=== PATIENT | male | born 1960 | race Caucasian/White ===

== ENCOUNTER → 2024-09-02 | Outpatient (CLI) | payer MEDICARE, SELFPAY ==
[2024-09-02 16:22] LABS: Absolute Lymphocyte Count 1.73 X10^3/uL (0.83-4.51); Absolute Neutrophil Count 3.8 X10^3/uL (2.0-7.7); Basophil# 0.04 X10^3/uL; Basophil% 0.6 % (0-1); Eosinophil# 0.05 X10^3/uL; Eosinophils% 0.8 % (0-5); Hematocrit 42.8 % (40-54); Hemoglobin 14.6 g/dL (13.0-16.5); Lymphocyte # 1.73 X10^3/ul (0.83-4.51); Lymphocyte % 27.7 % (19-41); Mean Corp Hgb Conc 34.1 g/dL (32-36); Mean Corpuscular Hgb 30.6 pg (27.0-32.0); Mean Corpuscular Volume 89.7 fL (80-94); Mean Platelet Vol. 9.9 fl (6.2-12.0); Monocyte# 0.57 X10^3/uL; Monocyte% 9.1 % (0-10); NRBC Flagged by Analyzer 0 % (0-5); Neutrophil # 3.83 X10^3/uL (2.7-7.7); Neutrophil % 61.5 % (47-70); Platelet Count 180 K/mm3 (150-450); RBC Distribution Width CV 13.3 % (11.6-14.6); RBC Distribution Width SD 43.9 fl (35.1-43.9); Red Blood Count 4.77 M/mm3 (4.6-6.2); White Blood Count 6.2 K/mm3 (4.4-11.0)
[2024-09-02 16:56] LABS: Erythrocyte Sedimentation Rate 27 mm/hr (0-20)
== END | disposition home or self-care (01) ==
PROVIDERS: PCP Family Medicine; Referring Provider Ophthalmology; Visit Provider Ophthalmology
DX: G45.3 Amaurosis fugax (principal)
CPT/HCPCS: 36415; 85025; 85652; 86140

== ENCOUNTER → 2024-09-13 | Outpatient (CLI) | payer MEDICARE, SELFPAY ==
--- NOTE | 2024-09-13 11:17 | CT_ITS ---
PROCEDURE: CTA HEAD AND NECK W/ CONTRAST 09/13/2024 REASON FOR EXAM: CRITICAL R ICA STENOSIS TECHNIQUE: CTA HEAD AND NECK W/ CONTRAST Multiplanar Sagittal and Coronal images were obtained. CONTRAST: Isovue 370 VOLUME: 95 mL One or more dose reduction techniques were used (e.g., Automated exposure control, adjustment of the mA and/or kV according to patient size, use of iterative reconstruction technique). RADIATION DOSE SUMMARY: CTDlvol: 28 mGy DLP: 1575.73 mGycm COMPARISON: None FINDINGS: Aortic Arch: Normal size and branching pattern. Mild atherosclerotic plaque. Brachiocephalic and Subclavians: Mild atherosclerotic plaque without significant stenosis. RIGHT Carotid: Right CCA: Unremarkable. Right ICA: At the carotid bifurcation. Maximum stenosis (NASCET): Gradient 90 % Right ECA: Unremarkable. LEFT Carotid: Left CCA: Unremarkable. Left ICA: Unremarkable. Left ECA: Unremarkable. Vertebrals: Codominant. Arise from the subclavians. Both vertebrals form the basilar. RIGHT Vertebral: Unremarkable. LEFT Vertebral: Unremarkable. Anatomy: [place] anatomy is normal. Aneurysm or avm: No intracranial aneurysms or large vascular malformations are identified. Anterior cerebral arteries: Unremarkable: Middle cerebral arteries: Unremarkable. Basilar artery: Unremarkable. Posterior cerebral arteries: Unremarkable. Other major branches of the posterior circulation: Unremarkable. Major venous structures: Unremarkable. Other findings: Neck: Lungs: Bones: CT/CTA Head AND Neck W/ Contrast IMPRESSION: Subtotal occlusion at the origin of the right internal carotid artery. Reading Location: [facility]
== END | disposition home or self-care (01) ==
LOC: CT 11:15
PROVIDERS: PCP Family Medicine; Referring Provider Physician Assistant; Visit Provider Physician Assistant
DX: I65.21 Occlusion and stenosis of right carotid artery (principal)
CPT/HCPCS: 70496; 70498; Q9967

== ENCOUNTER 2024-09-25 09:35 | Inpatient (IN) | payer MEDICARE, SELFPAY ==
--- NOTE | 2024-09-24 10:54 | PAT.ANESEVAL ---
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 When Was Last Pacemaker Check QUESTION #4 FULL TEXT: You/Your Family Experience fever (hyperthermia) with Anesthesia Last Oral Intake Last Oral intake: Last Oral Intake NPO since Meds taken in AM with sips of water? 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 Female No 09/23/24 15:56 HX of Motion Sickness No 09/23/24 15:56 HX of N/V After Surgery No 09/23/24 15:56 Non-Smoker Yes 09/23/24 15:56 Duration of Surgery greater Yes 09/23/24 15:56 than 60 minutes Number of Risk Factors 2 09/23/24 15:56 PONV Score Moderate Risk 09/23/24 15:56 Respiratory Assessment Respiratory Assessment - seed cleaning machine operator: Respiratory Tract Infection Hx - seed cleaning machine operator Hx Respiratory Tract Infection No 09/23/24 15:56 STOP Sleep Apnea STOP Sleep Apnea - seed cleaning machine operator: STOP Sleep Apnea - seed cleaning machine operator Hx Hypertension No 09/23/24 15:56 Hx Sleep Apnea No 09/23/24 15:56 CPAP BIPAP Do you snore loudly (louder No 09/23/24 15:56 than talking or can be heard Do you often feel tired/ No 09/23/24 15:56 fatigued/ sleepy during daytime? Has anyone observed you stop No 09/23/24 15:56 breathing during sleep? STOP Results Negative 09/23/24 15:56 QUESTION #5 FULL TEXT : Do you snore loudly (louder than talking or can be heard through closed doors)? 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 Specify any problems Hx of Preganancy in last 3 N/A 09/23/24 15:56 Months Nurse Filling Out Transfusion JZOLLINGE 09/23/24 15:56 & Questions: Date: 09/23/24 09/23/24 15:56 Time: 16:00 09/23/24 15:56 Patient unable to answer at this time (ie. confused, unrespo /Reproduction History /Reproductive History - seed cleaning machine operator: /Reproductive Hx- seed cleaning machine operator Hx Now No 09/23/24 15:56 Gestational Age (in weeks): EDC: Hx Hx Para Hx Section SAB No 09/23/24 15:56 Active Medications Active Medications: Current Medications Generic Name Dose Route Start Last Admin Trade Name Freq PRN Reason Stop Dose Admin Clindamycin Phosphate 900 mg in 50 mls @ 75 mls/hr 09/25/24 07:00 Cleocin IV 09/25/24 07:39 INTRAOP ONE [facility] Medical History (Updated 09/23/24 @ 16:10 by Stacey Zaldivar) Hx of carotid artery stenosis Wears glasses Wears dentures Alcohol use Arthritis Smoker History of stress test Family history of heart disease Home Medications ?Medication ?Instructions ?Recorded ?Last Taken ?Type ascorbic acid (vitamin C) 500 mg 1,000 mg PO .QD SUPPLEMENET 09/10/24 Unknown History capsule vitamins A,C,E-btlb-gzkidp 4,296 1 cap PO BID EYES 09/10/24 Unknown History mcg-226 mg-90 mg capsule (PreserVision AREDS) aspirin 81 mg tablet,delayed 81 mg PO DAILY THINNER #360 tabs 09/12/24 Unknown Rx release (Adult Aspirin Regimen) rosuvastatin 40 mg tablet 40 mg PO QDAY CHOLESTEROL #30 tabs 09/12/24 Unknown Rx clopidogrel 75 mg tablet (Plavix) 75 mg PO DAILY BLOOD THINNER #30 09/13/24 Unknown Rx tabs Allergy/AdvReac Type Severity Reaction Status Date / Time Penicillins Allergy Severe Anaphylaxis Verified 09/23/24 15:46 Family History Other CVA (cerebral vascular accident) Cancer Heart disease Hypertension Surgical History (Updated 09/23/24 @ 15:56 by Stacey Zaldivar) Hx of colonoscopy History of surgery on lower extremity (~2017) Social History Smoking Status: Light Smoker (<10/day) Tobacco: How many years used: 49 Audit: Pertinent Findings Pertinent Findings EKG Perinent findings: April 26, 2023. Normal sinus rhythm. Stress test pertinent findings: September 23, 2024. EF of 65%. No ischemia. No infarction. Recommendation Anesthesia Recommendation Anesthesia recommendation: OPTIMIZED for anesthesia
[2024-09-25] VITALS (25 sets, daily range): BP systolic 103–159; BP diastolic 61–89; PULSE 49–68; RESP 14–22; TEMP 36.2–36.9; O2SAT 91–99; BMI 35.2
--- NOTE | 2024-09-25 05:36 | EKG12_ITS ---
Test Reason : PRE-OP Blood Pressure : */* mmHG Vent. Rate : 50 BPM Atrial Rate : 50 BPM P-R Int : 176 ms QRS Dur : 84 ms QT Int : 454 ms P-R-T Axes : 1 33 12 degrees QTcB Int : 413 ms Sinus bradycardia Otherwise normal ECG No previous ECGs available Confirmed by LASHELL MCGINNIS, HERVE ([id number]), school photograph editor EDUARDO HARDING ([id number]) on 09/26/2024 6:41:47 AM Referred By: Marcial Srinivasan Confirmed By: HERVE LOBO MD
[2024-09-25] MEDS: Lactated Ringers 1,000 ML 15 ML IV (06:00)
[2024-09-25 06:23] LABS: Anion Gap 11 (5-15); BUN 13 mg/dL (4-19); BUN/Creat Ratio 16.4 RATIO (10-20); Calcium,Total 8.8 mg/dL (7.6-11.0); Carbon Dioxide 21.0 mmol/L (21.0-32.0); Chloride 107 mmol/L (98-108); Glucose 110 mg/dL (70-99); Potassium 4.0 mmol/L (3.3-5.1)
--- NOTE | 2024-09-25 06:30 | PRE.ANES_ITS ---
ASA Classification* ASA Classification ASA Classification: 2 Assessment & Plan Anesthesia* Anesthesia Assessment Anesthesia Assessment: Discussed sedation and/or anesthesia options, risks, benefits, and alternatives with patient/parents/legal guardian/POA. Questions invited. The patient/parents/legal guardian/POA seems to understand and agrees to proceed with anesthesia plan. Reviewed the physical assessment, medical history, allergy history and patient home medications list prior to surgery/procedure/anesthetic and documented any changes. Performed airway and anesthesia risk assessments. Anesthesia Type Anesthesia Type: General History Source History Obtained from:: Patient and Chart Anesthesia Focused Assessment* Temperature: 97.6 F Pulse Rate: 50 Blood Pressure: 159/89 Respiratory Rate: 16 Pulse Ox: 98 Oxygen Delivery Method: Room Air Airway Assessment Mouth opens: >3 cm Mallampati Score: I Teeth Condition: Dentures Neck Range of motion (ROM): Full ROM Labs Anesthesia Preop lab: CBC WBC 7.8 K/mm3 (4.4-11.0) 09/26/24 03:30 09/26/24 RBC 4.26 M/mm3 (4.6-6.2) L 09/26/24 03:30 09/26/24 Hgb 13.3 g/dL (13.0-16.5) 09/26/24 03:30 09/26/24 Hct 37.7 % (40-54) L 09/26/24 03:30 09/26/24 Plt Count 141 K/mm3 (150-450) L 09/26/24 03:30 09/26/24 CHEMISTRY Potassium 4.0 mmol/L (3.3-5.1) 09/25/24 06:00 09/25/24 Sodium 139 mmol/L (133-145) 09/25/24 06:00 09/25/24 BUN 13 mg/dL (4-19) 09/25/24 06:00 09/25/24 Creatinine 0.77 mg/dL (0.70-1.20) 09/25/24 06:00 09/25/24 Glucose 110 mg/dL (70-99) H 09/25/24 06:00 09/25/24 COAG Pre-Assessment Diagnosis/Proposed Procedure Planned Operative Procedure(s): RIGHT CAROTID STENT Anesthesia History 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 When Was Last Pacemaker Check QUESTION #4 FULL TEXT: You/Your Family Experience fever (hyperthermia) with Anesthesia Last Oral Intake Last Oral intake: Last Oral Intake NPO since 03:30 09/25/24 06:19 Meds taken in AM with sips of Yes 09/25/24 06:19 water? 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 Female No 09/23/24 15:56 HX of Motion Sickness No 09/23/24 15:56 HX of N/V After Surgery No 09/23/24 15:56 Non-Smoker Yes 09/23/24 15:56 Duration of Surgery greater Yes 09/23/24 15:56 than 60 minutes Number of Risk Factors 2 09/23/24 15:56 PONV Score Moderate Risk 09/23/24 15:56 Height & Weight Height & Weight: Anesthesia: Height & Weight Height 5 ft 9 in 09/25/24 06:19 Weight: 108 kg 09/25/24 06:19 Body Mass Index (BMI) 35.2 09/25/24 06:19 Respiratory Assessment Respiratory Assessment - communications systems engineer: Respiratory Tract Infection Hx - communications systems engineer Hx Respiratory Tract Infection No 09/23/24 15:56 Any additional information?: Yes Hx Respiratory Tract Infection: No History of Anesthesia Respiratory Infection details: Current smoker. In preop show slight wheezing. Breathing treatment with DuoNeb given in preop. STOP Sleep Apnea STOP Sleep Apnea - communications systems engineer: STOP Sleep Apnea - communications systems engineer Hx Hypertension No 09/23/24 15:56 Hx Sleep Apnea No 09/23/24 15:56 CPAP BIPAP Do you snore loudly (louder No 09/23/24 15:56 than talking or can be heard Do you often feel tired/ No 09/23/24 15:56 fatigued/ sleepy during daytime? Has anyone observed you stop No 09/23/24 15:56 breathing during sleep? STOP Results Negative 09/23/24 15:56 QUESTION #5 FULL TEXT : Do you snore loudly (louder than talking or can be heard through closed doors)? 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 Specify any problems Hx of Preganancy in last 3 N/A 09/23/24 15:56 Months Nurse Filling Out Transfusion JCOURT 09/23/24 15:56 & Questions: Date: 09/23/24 09/23/24 15:56 Time: 16:00 09/23/24 15:56 Patient unable to answer at this time (ie. confused, unrespo /Reproduction History /Reproductive History - communications systems engineer: /Reproductive Hx- communications systems engineer Hx Now No 09/23/24 15:56 Gestational Age (in weeks): EDC: Hx Hx Para Hx Section SAB No 09/23/24 15:56 Active Medications Active Medications: Current Medications Generic Name Dose Route Start Last Admin Trade Name Freq PRN Reason Stop Dose Admin Clindamycin Phosphate 900 mg in 50 mls @ 75 mls/hr 09/25/24 07:00 Cleocin IV 09/25/24 07:39 INTRAOP ONE Lactated Ringer's 1,000 mls @ 15 mls/hr 09/25/24 05:45 09/25/24 06:00 IV 15 mls/hr .Q48H FILIPE Administration PFSH Medical History Hx of carotid artery stenosis Wears glasses Wears dentures Alcohol use Arthritis Smoker History of stress test Family history of heart disease Home Medications ?Medication ?Instructions ?Recorded ?Last Taken ?Type ascorbic acid (vitamin C) 500 mg 1,000 mg PO .QD SUPPL EMENET 09/10/24 09/24/24 History capsule vitamins A,C,B-zymk-bljuvr 4,296 1 cap PO BID EYES 09/24/24 History mcg-226 mg-90 mg capsule (PreserVision AREDS) aspirin 81 mg tablet,delayed 81 mg PO DAILY THINNER #3 60 tabs 09/12/24 09/25/24 03:30 Rx release (Adult Aspirin Regimen) rosuvastatin 40 mg tablet 40 mg PO QDAY CHOLESTEROL #3 0 tabs 09/12/24 09/24/24 Rx acetaminophen 500 mg tablet 1,000 mg (2 x 500 mg) PO Q 8 7 days 09/26/24 Unknown Rx #42 tabs clopidogrel 75 mg tablet (Plavix) 75 mg PO DAILY BLOOD THINNER #30 09/26/24 Unknown Rx tabs oxycodone 5 mg tablet 5 mg PO Q8H PRN PRN Pain Sco re 09/26/24 Unknown Rx 4-10 3 days #9 tabs tamsulosin 0.4 mg capsule 0.4 mg PO DAILY 14 days #14 caps 09/26/24 Unknown Rx Allergy/AdvReac Type Severity Reaction Status Date / Time Penicillins Allergy Severe Anaphylaxis Verified 09/25/24 06:16 Family History Other CVA (cerebral vascular accident) Cancer Heart disease Hypertension Surgical History Hx of colonoscopy History of surgery on lower extremity (~2018) Social History Smoking Status: Light Smoker (<10/day) Tobacco: How many years used: 49 Review of Systems (Anesthesia) ROS Narrative System reviewed and no additional complaints, except as documented. Physical Exam Const alert and oriented x3 Orientation / Consciousness: awake Nutritional Appearance: obese
--- NOTE | 2024-09-25 06:53 | PCM.HP.BLA ---
History and Physical Intake Visit Reasons: critical R ICA stenosis Is patient in pain?: No Allergies Penicillins Allergy (Severe, Verified 09/18/24 12:35) Anaphylaxis Medications ?Medication ?Instructions ?Recorded ?Confirmed ?Type ascorbic acid (vitamin C) 500 mg mg PO 09/10/24 09/18/24 History capsule multivitamin 1 tab PO QDAY 09/10/24 09/18/24 History vitamins A,C,G-jqei-suqvpw 4,296 1 cap PO BID 09/10/24 09/18/24 History mcg-226 mg-90 mg capsule (PreserVision AREDS) aspirin 81 mg tablet,delayed 81 mg PO DAILY #360 tabs 09/12/24 09/18/24 Rx release (Adult Aspirin Regimen) rosuvastatin 40 mg tablet 40 mg PO QDAY #30 tabs 09/12/24 09/18/24 Rx clopidogrel 75 mg tablet (Plavix) 75 mg PO DAILY #30 tabs 09/13/24 09/13/24 Rx Have you fallen in the past year?: Yes PFSH Surgical History History of surgery on lower extremity (~2017) Family History Other CVA (cerebral vascular accident) Cancer Heart disease Hypertension Social History Smoking Status: Light Smoker (<10/day) Tobacco: How many years used: 49 HPI HPI HPI: ROMA ELKINS, is a 63 M who presents to the office today for follow up of right carotid stenosis with two episodes of right eye amarosis in July. At the time he was not on antiplatelet medications. Since that time no further evetns, has been on ASA and recently added plavix. Duplex revealed severe right ICA stenosis and CTA confirmed this. Denies CP/SOB with exertion or prior CAD. He has a stress test next Monday. ROS General General: No weight change, appetite, fatigue, colon cancer, breast cancer or weakness HEENT HEENT: No difficulty swallowing, eye injury, eye surgery, swollen glands or hoarseness Endo Endocrine: No thyroid disease, diabetes mellitus, thyroid cancer, Hair loss, heat intolerance or cold intolerance Skin Skin: No rash or changing moles Musc Musculoskeletal: No back problems, arthritis, rheumatoid arthritis, gout or joint pain Cardio Cardiovascular: No murmur, pacemaker, heart disease, atrial fibrillation, high blood pressure, heart attack, heart stent, palpitations, shortness of breath with exertion or chest pain Psych Psychiatric: No depression, anxiety or hearing voices Resp Respiratory: No shortness of breath, No sleep apnea, No cough, No COPD, No asthma, No emphysema and No wheezing Gastro Gastrointestinal: No abdominal pain, No nausea or vomiting, No diarrhea, No constipation, No blood in stool, No acid reflux, No hemorrhoids, No ulcers, No gallbladder problem and No black,tarry stools Yuri Hematologic: No blood thinners, No blood disorders, No bleeding, No anemia and No blood clots Neuro Neurologic: No system reviewed and no additional complaints, except as documented, No as per HPI, No abnormal gait, No abnormal hearing, No abnormal movements, No abnormal speech, No behavioral changes, No burning sensations, No confusion, No convulsions, No disequilibrium, No dizziness, No localized weakness, No frequent falls, No headache(s), No lack of coordination, No loss of vision, No memory loss, Yes numbness, Yes other visual disturbances, No radicular pain, No restless legs, No sensory deficit, No syncope, Yes tingling, No tremor(s), No weakness and No other ROS Narrative blind rt eye May for one to two mins, visual is good now Exam Const General: cooperative, healthy appearing, comfortable, no acute distress and well developed Nutritional Appearance: well nourished Orientation: alert, awake and oriented x3 [facility] Head: normocephalic and atraumatic Ears: hearing grossly normal bilaterally Nose: external nose normal Eyes General: appearance normal, both eyes and all related structures EOM: EOM intact bilaterally Neck Neck: normal visual inspection, full ROM and trachea midline Resp Effort & Inspection: normal respiratory effort, able to speak in complete sentences, symmetric chest movement, no audible wheezes, not labored, no stridor and no use of accessory muscles Cardio Rate: regular rate Rhythm: regular rhythm Pulses: brachial pulses present Skin General: no rashes or lesions noted and no erythema Wounds: no wounds Neuro Cranial Nerves: CN's II-XI intact bilaterally and EOM intact bilaterally Speech: speech normal Gait: normal gait Motor: strength 5/5 throughout Sensory Exam: no sensory deficits noted Psych Appearance: grossly normal and well kempt Mental Status: mental status grossly normal Mood: congruent mood Speech and Movement: speech and movement normal Thought Content: normal Judgment: judgment good Coding Level of Care Code Off vis,est,level 4 Diagnoses Carotid stenosis, right I65.21 Assessment and Plan Assessment and Plan (1) Carotid stenosis, right: Status: Chronic Plan: -TCAR
[2024-09-25] MEDS: Midazolam 2 MG/2 ML Syringe IV (07:16)
[2024-09-25] MEDS: Glycopyrrolate (Cantrell) 0.2 MG/ML SYRINGE 0.6 MG IV (08:12)
[2024-09-25] MEDS: Heparin Injection 5,000 UNITS/ML Syringe 11000 UNITS IV (08:23)
[2024-09-25] MEDS: FENTANYL 200 MCG IV (09:25)
--- NOTE | 2024-09-25 11:00 | PCM.POST.ANE ---
Anesthesia: Postop Eval I Current Vital Signs Temperature: 97.5 F Pulse Rate: 52 Blood Pressure: 125/76 Respiratory Rate: 16 Pulse Ox: 97 Oxygen Delivery Method: Room Air Assessment Airway patent: Yes Spontaneous unlabored respirations: Yes Mental status: Awake and Calm nausea: No Vomiting: No Anesthesia Complication: No Fluid Hydration Crystalloid volume administer (ml): 1,500 Total IV fluid infused: 1,500 Progress Note Anesthesia document: Postop Eval 1 completed: Yes
--- NOTE | 2024-09-25 11:34 | PCM.POSTANE2 ---
Anesthesia Postop Eval I Sum Anesthesia Postop Eval I Summary Anesthesia Postop Eval I Summary: Anesthesia Postop Eval I: Assessment Summary Airway patent Spontaneous unlabored respirations Mental status nausea Vomiting Anesthesia Postop Eval I: Fluid Summary Crystalloid volume administer (ml) Colloids volume administered ( ml) Blood Product volume administered (ml) Total IV fluid infused Anesthesia Postop Eval I: Summary Notes Anesthesia Complication Anesthesia Complication Comment: Post-operative progress note Anesthesia: Postop Eval II Evaluation Mental status: Awake and Calm Pain Level: 2 nausea: No Vomiting: No Complications Anesthesia Complication: No
[2024-09-25] MEDS: Multivitamin (Healthy Eyes) Capsule 1 CAP PO ×2 (11:53→21:05)
[2024-09-25 13:05] LABS: ACT Activated Clotting Time 285 sec (74-137)
[2024-09-25 13:05] LABS: ACT Activated Clotting Time 331 sec (74-137)
[2024-09-25 13:05] LABS: ACT Activated Clotting Time 141 sec (74-137)
[2024-09-25] MEDS: Clindamycin 900 MG/50 ML BAG 75 MG IV ×2 (13:56→21:12)
--- NOTE | 2024-09-25 14:17 | PCM.OPRPT ---
Operative Report (Standard) Operative Information Date of Procedure: 09/25/24 Pre-Operative Diagnosis: Severe right carotid artery stenosis with episodes of amaurosis fugax Post-Operative Diagnosis: Same Surgery/Procedure Performed: Right carotid artery stent, transcarotid welding estimator: Yes Mill Turner: Blane Espinoza Tasks completed by assistant child care teacher: Opening, Closing, Opening & closing and Retracting Type of Anesthesia: General RN Documented Start/Stop Times: Operation Date: 09/25/24 07:15 Case Time Into Pre-Op 09/25/24 05:36 Out of Pre-Op 09/25/24 06:50 Into Recovery 09/25/24 10:16 Out of Recovery 09/25/24 11:27 Procedure Start Time: 08:15 Procedure Stop Time: 09:30 Select all DRAINS/GRAFTS/IMPLANTS that apply: Implanted device Implanted device details: [address] En route 9x40 Estimated Blood Loss: 7 Specimen collected: No Description of surgery: HPI: Patient is a 63-year-old male who suffered multiple episodes of right eye vision loss and was found to have severe right carotid artery stenosis. His anatomy and plaque morphology are most amenable to carotid artery stenting over endarterectomy. He is taken now for carotid artery stent via transcarotid approach. Description of procedure: Upon obtaining informed consent and verification correct patient procedure and site the patient was taken the Gyroscope Technician where he was placed under general anesthesia. He was then positioned prepped and draped in usual sterile fashion time was performed. Transverse incision was made 1 fingerbreadth superior to the clavicle and Bovie used to dissect down through subcutaneous tissue to the level of the platysma. The platysma was then divided and self-retaining retractors put in position with further dissection carried down to the sternocleidomastoid. The cleft between the sternal and clavicular heads was then dissected with Bovie exposing the carotid sheath. Self-retaining retractors removed deeper into the wound and further dissection carried down to the internal jugular vein which was then dissected free along its anterior border along with be retracted laterally exposing the common carotid artery. Sharp dissection then used to dissect free the common carotid artery with care taken to identify and protect the adjacent nerve and vein structures. A writing was used to place a vessel loop proximally and the patient was then heparinized and allowed to circulate for 3 minutes. Subsequent heparin dosing was then based performed on ACT results. A 5-0 Prolene pursestring suture was then placed at the intended access site. Next under ultrasound guidance the right common femoral vein was accessed with a micropuncture needle wire which was then exchanged for micropuncture sheath. Through the micropuncture sheath a J-wire was advanced and the micropuncture sheath exchanged for the flow reversal venous return sheath which was advanced without resistance. Once adequate ACT values were confirmed the common carotid artery was accessed with a micropuncture needle wire which was exchanged for a micropuncture sheath. Through the micropuncture sheath a hand-injection carotid angiogram was performed within satisfactory positioning no extravasation or dissection. Was also confirmed the position of the carotid bifurcation and the location of the plaque burden. Next the J-wire was advanced through the micropuncture sheath and stop short of the proximal edge of the plaque. The micropuncture sheath was exchanged for the [address] flow reversal sheath which again was advanced without resistance. The flow reversal tubing was then attached first to the carotid sheath and back flushed before establishing connection to the venous return sheath and confirming adequate flow reversal. Multiple oblique views were obtained to confirm satisfactory sheath tip positioning and to suzan the location of the carotid plaque and anatomic landmarks. Next the common carotid artery was occluded with a vessel loop proximally and flow reversal confirmed. Utilizing the [address] 014 wire was successfully navigated into the internal carotid artery traversing lesion advancing the wire into the distal internal carotid artery. A [address] angioplasty balloon 5 x 35 was then advanced centered on the lesion and inflated to nominal for 20 seconds then deflated and withdrawn. The en route stent 9 x 40 was then prepped for manufactures instructions advanced to position centered on the lesion and deployed. 3 minutes of flow reversal were then performed after which completion angiography was performed revealing satisfactory stent positioning with no extravasation or dissection and no plaque prolapse. The occlusive vessel loop was then released allowing additional time for flow reversal after which time the tubing was detached and blood flow returned via the femoral sheath. The femoral venous sheath was then withdrawn followed by manual pressure for 10 minutes until hemostasis was obtained. The carotid sheath was then withdrawn and the pursestring suture secured with satisfactory hemostasis observed. The wound was then inspected for hemostasis and Surgicel powder topical hemostatic applied followed by a [address] [place] [address] QUYEN via separate stab incision. Incision was then closed with 3-0 Vicryl followed by 4-0 Monocryl and Dermabond for the skin. At the conclusion of the case the patient was awake from anesthesia well extremities to command with cranial nerves intact. He was then taken to the recovery room with anticipated mission intensive intensive care unit for hemodynamic and neurologic monitoring. Surgical Findings: See above Complications Complications: No
[2024-09-26] VITALS (10 sets, daily range): BP systolic 123–142; BP diastolic 66–75; PULSE 52–72; RESP 15–20; TEMP 36.4–36.9; O2SAT 94–97; BMI 35.1
[2024-09-26 03:50] LABS: Hematocrit 37.7 % (40-54); Hemoglobin 13.3 g/dL (13.0-16.5); Immature Granulocytes Count 0.020 X10^3/uL (0.0-0.0); Mean Corp Hgb Conc 35.3 g/dL (32-36); Mean Corpuscular Volume 88.5 fL (80-94); Mean Platelet Vol. 9.5 fl (6.2-12.0); NRBC Flagged by Analyzer 0 % (0-5); Platelet Count 141 K/mm3 (150-450); RBC Distribution Width CV 13.2 % (11.6-14.6); RBC Distribution Width SD 43.2 fl (35.1-43.9); Red Blood Count 4.26 M/mm3 (4.6-6.2); White Blood Count 7.8 K/mm3 (4.4-11.0)
--- OUTSIDE RECORDS SUMMARY | 2024-09-26 08:00 | XMS RPT_ITS | CCD ---
Author Organization [facility] CliniSyme Care Team Providers Care School Commissioner Name Role Phone BLACK JIMENEZ Unavailable Jamil MCNEILL MD Unavailable NURSE, MADELINE Unavailable Unavailable Taty RN, Mckenzie Unavailable Unavailable Unavailable Unavailable Re MCGINNIS, Dr. Ordoñez Primary Care Provider Jhonatan MCGINNIS, Dr. Castañeda Attending Provider Dr. Sharee Price MD Referring Provider [phone] Matilde Rogers Attending Provider Matilde Rogers Referring Provider Dr. Smita Mcneill MD Referring Provider Zarina MCGINNIS, Dr. Ceja Attending Provider Hernandez, Matilde Attending Unavailable Hernandez, Matilde Referring Unavailable Kornhaus, Smita Primary Care Unavailable Kornhaus, Smita Primary Care Unavailable Sharee Price Attending Unavailable Sharee Price Referring Unavailable Zarina, Marcial Admitting Unavailable Marcial Srinivasan Attending Unavailable Zarina, Marcial Referring Unavailable Kornhaus, Smita Primary Care Unavailable Sharee Price Referring Unavailable Hernandez, Matilde Attending Unavailable Kornhaus, Smita Primary Care Unavailable Kornhaus, Smita Referring Unavailable [place], Marcial Attending Unavailable Kornhaus, Smita Primary Care Unavailable KORNHAUS, R SMTIA Consulting Unavailable HERNANDEZ, MATILDE Admitting Unavailable HERNANDEZ, MATILDE Primary Care Unavailable HERNANDEZ, MATILDE Attending Unavailable PROVIDER, UNKNOWN Consulting Unavailable PROVIDER, UNKNOWN Consulting Unavailable PROVIDER, UNKNOWN Consulting Unavailable KORNHAUS, R SMITA Consulting Unavailable KORNHAUS, R SMITA Attending Unavailable KORNHAUS, R SMITA Admitting Unavailable KORNHAUS, R SMITA Primary Care Unavailable PROVIDER, UNKNOWN Consulting Unavailable PROVIDER, UNKNOWN Consulting Unavailable PROVIDER, UNKNOWN Consulting Unavailable KORNHAUS, R SMITA Primary Care Unavailable KORNHAUS, R SMITA Attending Unavailable Jamil MCNEILL Admitting Unavailable JENY MOORE Admitting Unavailable JENY MOORE Primary Care Unavailable JENY MOORE Attending Unavailable Allergies Allergy Classification Reported Allergen(s) Allergy Type Date of Onset Reaction(s) Facility (13 sources) Penicillins (Antibiotic) Anaphylaxis [facility]; [place] [facility] (3 sources) Penicillins Allergy to substance 09-12-2024 Anaphylaxis [facility] (1 source) Penicillins Drug allergy (disorder) 09-18-2024 [facility] Repository (1 source) Penicillin Drug Allergy [facility] Repository (1 source) Penicillins Drug allergy (disorder) [facility] Repository Medications Current Medications Medication Drug Class(es) Dates Sig (Normalized) Sig (Original) ascorbic acid 500 mg oral capsule (3 sources) Vitamin C Start: 09-10-2024 Ascorbic Acid (Vitamin C) 500 mg capsule Active mg PO September 10, 2024 12:00am aspirin 81 mg delayed release oral tablet (3 sources) Platelet Aggregation Inhibitor, Nonsteroidal Anti-inflammatory Drug Start: 09-12-2024 take 1 tablet by mouth once daily Aspirin (Adult Aspirin Regimen) 81 mg tablet,delayed release (DR/EC) Active 81 mg PO DAILY 360 0 September 12, 2024 12:00am clopidogrel 75 mg oral tablet (2 sources) P2Y12 Platelet Inhibitor Start: 09-13-2024 take 1 tablet by mouth once daily Clopidogrel (Plavix) 75 mg tablet Active 75 mg PO DAILY 30 2 September 13, 2024 12:00am Multivitamin tablet (3 sources) Start: 09-10-2024 Multivitamin tablet Active 1 {tbl} PO daily September 10, 2024 12:00am Start: 09-10-2024 Multivitamin t ablet Discontinued 1 {tbl} PO daily September 10, 2024 12:00am rosuvastatin calcium 40 mg oral tablet (3 sources) HMG-CoA Reductase Inhibitor Start: 09-12-2024 take 1 tablet by mouth once daily Rosuvastatin 40 mg tablet Active 40 mg PO daily 30 2 September 12, 2024 12:00am Vitamins A,C,C-Xrxp-Iexuug (Preservision Areds) 4,296 mcg-226 mg-90 mg capsule (3 sources) Start: 09-10-2024 Vitamins A,C,X-Kkjb-Wrezpi (Preservision Areds) 4,296 mcg-226 mg-90 mg capsule Active 1 NMA PO TWICE A DAY September 10, 2024 12:00am Problems Active Problems Problem Classification Problem Date Documented Date Episodic/Chronic Disorders of lipid metabolism (16 sources) Hypertriglyceridemia ; Translations: [Pure hyperglyceridemia] 01-29-2024 Chronic Immunizations and screening for infectious disease (20 sources) Encounter for immunization; Translations: [Other specified vaccinations against streptococcus pneumoniae [pneumococcus]] 01-23-2024 Episodic Occlusion or stenosis of precerebral arteries (8 sources) Right carotid artery stenosis; Translations: [Occlusion and stenosis of right carotid artery] Onset: 09-18-2024 09-12-2024 Chronic Other circulatory disease (20 sources) Elevated blood pressure; Translations: [Elevated blood-pressure reading, without diagnosis of hypertension] 01-24-2024 Episodic Other hematologic conditions (20 sources) Increased globulin; Translations: [Abnormality of globulin] 01-29-2024 Episodic Other screening for suspected conditions (not mental disorders or infectious disease) (20 sources) Patient encounter status; Translations: [Encounter for screening for malignant neoplasm of colon] 01-23-2024 Episodic Transient cerebral ischemia (7 sources) Amaurosis fugax of right eye; Translations: [Amaurosis fugax] Onset: 09-05-2024 09-12-2024 Chronic Past or Other Problems Problem Classification Problem Date Documented Da te Episodic/Chronic Unclassified (12 sources) routine check up - Pt recently on [employer] and needs to establish with PCP. 01-23-2024 Unclassified (8 sources) !Patient notification of lab results - Dr. Mcneill. The test(s) that you had done were/was blood work (One of your liver function tests was slightly elevated. This can result from any number of causes such as fatty deposits in the liver or irritation due to a medication. I don't feel this test was elevated to the point of being a critical concern, but I would recommend that we repeat the test in 3 months to verify that it is stable.The protein level on your blood test was elevated. This is actually a test which combines the amount of a number of individual protein levels to give the total level which we tested. Sometimes the total is elevated because several individual proteins are in the high normal range. In other cases, it is because a single protein is elevated and thus driving up the total. There is an additional blood test called a serum protein electrophoresis that must be run at this time which helps identify these individual protein levels. Please call to schedule this in the next month.Your triglycerides were elevated at 205 (normal 150 or below). Avoiding fatty or sugary foods can help lower this.Your 3 month sugar (A1C) was 5.8 which is just inside the pre-diabetic range. Try to watch your sugar intake to keep this from rising.Your PSA test was normal.). You should call our office if you have any questions. 01-29-2024 Unclassified (3 sources) Blood pressure check - Note for Blood pressure check-up: Pt is feeling good. No chest pain or headaches. 07-23-2024 NEGATED: Highlighted row has been ruled out!Unclassified (1 source) No Problem Information Available Results Test Name Value Interpretation Reference Range Facility MR/BMSShani 09-18-2024 MR/BMS.MINOO [facility] Vascular Surgery [address] [place] [address] OFFICE VISIT Date of Service: 09/18/24 MR#: [id number] Acct: [id number] Name: ROMA MUNGUIA Rep #: [id number] : 1960 Provider: Dr. Marcial Srinivasan MD Age/Sex: 63/M Location: [facility] Status: Signed Intake Vital Signs 09/18/24 12:34 Weight: 238 lb BP 149/83 H Blood Pressure Location Lt brachial Position Sitting Respiration 16 Pulse 68 Pulse Source Monitor Temp 98.2 F Temp Source Temporal Pulse Oximetry (%) 96 Oxygen Delivery Method room air Intake Visit Reasons: critical R ICA stenosis Is patient in pain?: No Allergies Penicillins Allergy (Severe, Verified 09/18/24 12:35) Anaphylaxis Medications ???Medication ???Instructions ???Recorded ???Confirmed ???Type ascorbic acid (vitamin C) 500 mg mg PO 09/10/24 09/18/24 History capsule multivitamin 1 tab PO QDAY 09/10/24 09/18/24 Hi story vitamins A,C,P-flll-orderw 4,296 1 cap PO BID 09/10/24 09/18/24 His tory mcg-226 mg-90 mg capsule (PreserVision AREDS) aspirin 81 mg tablet,delayed 81 mg PO DAILY #360 tabs 09/12/24 09/18/24 Rx release (Adult Aspirin Regimen) rosuvastatin 40 mg tablet 40 mg PO QDAY #30 tabs 09/12/24 Rx clopidogrel 75 mg tablet (Plavix) 75 mg PO DAILY #30 tabs 09/13/24 09/13/24 Rx Have you fallen in the past year?: Yes PFSH Surgical History History of surgery on lower extremity ( 2018) Family History Other CVA (cerebral vascular accident) Cancer Heart disease Hypertension Social History Smoking Status: Light Smoker (<10/day) Tobacco: How many years used: 49 HPI HPI HPI: ROMA MUNGUIA, is a 63 M who presents to the office today for follow up of right carotid stenosis with two episodes of right eye amarosis in July. At the time he was not on antiplatelet medications. Since that time no further evetns, has been on ASA and recently added plavix. Duplex revealed severe right ICA stenosis and CTA confirmed this. Denies CP/SOB with exertion or prior CAD. He has a stress test next Monday. ROS General General: No weight change, appetite, fatigue, colon cancer, breast cancer or weakness HEENT HEENT: No difficulty swallowing, eye injury, eye surgery, swollen glands or hoarseness Endo Endocrine: No thyroid disease, diabetes mellitus, thyroid cancer, Hair loss, heat intolerance or cold intolerance Skin Skin: No rash or changing moles Musc Musculoskeletal: No back problems, arthritis, rheumatoid arthritis, gout or joint pain Cardio Cardiovascular: No murmur, pacemaker, heart disease, atrial fibrillation, high blood pressure, heart attack, heart stent, palpitations, shortness of breath with exertion or chest pain Psych Psychiatric: No depression, anxiety or hearing voices Resp Respiratory: No shortness of breath, No sleep apnea, No cough, No COPD, No asthma, No emphysema and No wheezing Gastro Gastrointestinal: No abdominal pain, No nausea or vomiting, No diarrhea, No constipation, No blood in stool, No acid reflux, No hemorrhoids, No ulcers, No gallbladder problem and No black,tarry stools Yuri Hematologic: No blood thinners, No blood disorders, No bleeding, No anemia and No blood clots Neuro Neurologic: No system reviewed and no additional complaints, except as documented, No as per HPI, No abnormal gait, No abnormal hearing, No abnormal movements, No abnormal speech, No behavioral changes, No burning sensations, No confusion, No convulsions, No disequilibrium, No dizziness, No localized weakness, No frequent falls, No headache(s), No lack of coordination, No loss of vision, No memory loss, Yes numbness, Yes other visual disturbances, No radicular pain, No restless legs, No sensory deficit, No syncope, Yes tingling, No tremor(s), No weakness and No other ROS Narrative blind rt eye May for one to two mins, visual is good now Exam Const General: cooperative, healthy appearing, comfortable, no acute distress and well developed Nutritional Appearance: well nourished Orientation: alert, awake and oriented x3 HENMT Head: normocephalic and atraumatic Ears: hearing grossly normal bilaterally Nose: external nose normal Eyes General: appearance normal, both eyes and all related structures EOM: EOM intact bilaterally Neck Neck: normal visual inspection, full ROM and trachea midline Resp Effort Inspection: normal respiratory effort, able to speak in complete sentences, symmetric chest movement, no audible wheezes, not labored, no stridor and no use of accessory muscles Cardio Rate: regular rate Rhythm: regular rhythm Pulses: brach (more content not included)... Normal [facility] CTA Head AND Neck W/ Contras ton 09-13-2024 CTA Head AND Neck W/ Contrast [facility] [address] [place] [address] CTA Head AND Neck W/ Contrast MR#: [id number] Acct: [id number] Name: ROMA MUNGUIA Rep #: [id number] : 1960 M 63 From: Cesar farr MD PCP: Dr. Smita Mcneill MD Status: REG CLI Study: CTA Head AND Neck W/ Contrast Date of Exam: Exam# [id number] Ordering Dr: Matilde Hernandez PROCEDURE: CTA HEAD AND NECK W/ CONTRAST 09/13/2024 REASON FOR EXAM: CRITICAL R ICA STENOSIS TECHNIQUE: CTA HEAD AND NECK W/ CONTRAST Multiplanar Sagittal and Coronal images were obtained. CONTRAST: Isovue 370 VOLUME: 95 mL One or more dose reduction techniques were used (e.g., Automated exposure control, adjustment of the mA and/or kV according to patient size, use of iterative reconstruction technique). RADIATION DOSE SUMMARY: CTDlvol: 28 mGy DLP: 1575.73 mGycm COMPARISON: None FINDINGS: Aortic Arch: Normal size and branching pattern. Mild atherosclerotic plaque. Brachiocephalic and Subclavians: Mild atherosclerotic plaque without significant stenosis. RIGHT Carotid: Right CCA: Unremarkable. Right ICA: At the carotid bifurcation. Maximum stenosis (NASCET): Gradient 90 % Right ECA: Unremarkable. LEFT Carotid: Left CCA: Unremarkable. Left ICA: Unremarkable. Left ECA: Unremarkable. Vertebrals: Codominant. Arise from the subclavians. Both vertebrals form the basilar. RIGHT Vertebral: Unremarkable. LEFT Vertebral: Unremarkable. Anatomy: [place] anatomy is normal. Aneurysm or avm: No intracranial aneurysms or large vascular malformations are identified. Anterior cerebral arteries: Unremarkable: Middle cerebral arteries: Unremarkable. Basilar artery: Unremarkable. Posterior cerebral arteries: Unremarkable. Other major branches of the posterior circulation: Unremarkable. Major venous structures: Unremarkable. Other findings: Neck: Lungs: Bones: CT/CTA Head AND Neck W/ Contrast IMPRESSION: Subtotal occlusion at the origin of the right internal carotid artery. Reading Location: [id number] CC: FRANKIE Mchugh; Dr. Smita Mcneill MD Swatch Clerk: Signed Normal [facility] MR/BMS.Sulema 09-12-2024 MR/BMS.[facility] Vascular Surgery [address] [place] [address]. [address] [place] [address] OFFICE VISIT Date of Service: 09/12/24 MR#: [id number] Acct: [id number] Name: ROMA MUNGUIA Rep #: [id number] : 1960 Provider: FRANKIE Mchugh Age/Sex: 63/M Location: [facility] Status: Signed Intake Vital Signs 09/12/24 08:39 Weight: 238 lb BP 132/79 H Blood Pressure Location Rt brachial Position Sitting Respiration 16 Pulse 63 Pulse Source Monitor Temp 97.7 F L Temp Source Temporal Pulse Oximetry (%) 96 Oxygen Delivery Method room air Intake Visit Reasons: R Carotid Occlusion copay $35 Is patient in pain?: No Allergies Penicillins Allergy (Severe, Verified 09/12/24 08:44) Anaphylaxis Medications ???Medication ???Instructions ???Recorded ???Confirmed ???Type ascorbic acid (vitamin C) 500 mg mg PO 09/10/24 09/10/24 History capsule multivitamin 1 tab PO QDAY 09/10/24 09/10/24 Hi story vitamins A,C,F-kzyz-sdytgg 4,296 1 cap PO BID 09/10/24 09/10/24 His tory mcg-226 mg-90 mg capsule (PreserVision AREDS) aspirin 81 mg tablet,delayed 81 mg PO DAILY #360 tabs 09/12/24 09/12/24 Rx release (Adult Aspirin Regimen) rosuvastatin 40 mg tablet 40 mg PO QDAY #30 tabs 09/12/24 Rx Have you fallen in the past year?: Yes PFSH Surgical History (Updated 09/12/24 @ 08:34 by Christa Mcelroy) History of surgery on lower extremity ( 2018) Family History (Updated 09/12/24 @ 08:37 by Christa Mcelroy) Other CVA (cerebral vascular accident) Cancer Heart disease Hypertension Social History (Updated 09/12/24 @ 08:39 by Christa Mcelroy) Smoking Status: Light Smoker (<10/day) Tobacco: How many years used: 49 HPI HPI HPI: ROMA MUNGUIA, is a 63 M who presents to the office today for evaluation of carotid artery stenosis as referred from [facility]. He had recent carotid duplex 09/09/24 at [facility] performed secondary to R eye vision changes which demonstrated critical R ICA stenosis with max PSV 543.76/269.53. Patient had a brief episode 3 weeks ago where vision in his R eye went completely black; this resolved completely within a few seconds. He report then a few days ago he had another episode but this time only the top half of his vision went black, again resolved within a few seconds. He denies any other associated neurological symptoms such as weakness/numbness/p aresthesias/facial droop/dysarthria. He denies any prior history of CVA or TIA, VTE, PAD, coronary artery disease. He is not on any prescription medications at home, does not take aspirin. He notes he has an upcoming 4 week trip to [place], planned to leave on 09/28. He would really still like to attend this if possible. ROS General General: No weight change, appetite, fatigue, colon cancer, breast cancer or weakness HEENT HEENT: No difficulty swallowing, eye injury, eye surgery, swollen glands or hoarseness Endo Endocrine: No thyroid disease, diabetes mellitus, thyroid cancer, Hair loss, heat intolerance or cold intolerance Skin Skin: No rash or changing moles Musc Musculoskeletal: No back problems, arthritis, rheumatoid arthritis, gout or joint pain Cardio Cardiovascular: No murmur, pacemaker, heart disease, atrial fibrillation, high blood pressure, heart attack, heart stent, palpitations, shortness of breath with exertion or chest pain Psych Psychiatric: No depression, anxiety or hearing voices Resp Respiratory: No shortness of breath, No sleep apnea, No cough, No COPD, No asthma, No emphysema and No wheezing Gastro Gastrointestinal: No abdominal pain, No nausea or vomiting, No diarrhea, No constipation, No blood in stool, No acid reflux, No hemorrhoids, No ulcers, No gallbladder problem and No black,tarry stools Yuri Hematologic: No blood thinners, No blood disorders, No bleeding, No anemia and No blood clots Neuro Neurologic: No system reviewed and no additional complaints, except as documented, No as per HPI, No abnormal gait, No abnormal hearing, No abnormal movements, No abnormal speech, No behavioral changes, No burning sensations, No confusion, No convulsions, No disequilibrium, No dizziness, No localized weakness, No frequent falls, No headache(s), No lack of coordination, No loss of vision, No memory loss, Yes numbness, Yes other visual disturbances, No radicular pain, No restless legs, No sensory deficit, No syncope, Yes tingling, No tremor(s), No weakness and No other Exam Const General: cooperative, comfortable and no acute distress Orientation: alert, awake and oriented x3 HENMT Head: normal to inspection, normocephalic and atraumatic Ears: hearing grossly normal bilaterally and external ears normal Nose: external nose normal Eyes General: appearance normal, both eyes and all rela (more content not included)... Normal [facility] CV CAROTID STUDY CV CAROTID STUDY [place] [address] Patient: ROMA MUNGUIA Phone#: : 1960 Age: 63 Gender: M Pt. Type: Out Account: [id number] Location: 052 Ordering: SHAREE PRICE Exam Date: 09/09/2024/10:38 Family Phys: Charge Code: [id number] Physician: [place] Order #: [id number] Dose#: PROCEDURE: CAROTID FLOW STUDY COMPARISON: None. INDICATIONS: Amaurosis fugax TECHNIQUE: Color duplex Doppler ultrasound and pulsed Doppler analysis were performed to evaluate the cervical carotid arteries and vertebral flow. All measurements for carotid artery narrowing or stenosis were obtained using the ipsilateral distal internal carotid artery as the reference value. SHOE FITTER: RODRIGUEZ BAIG RVMar RDCS PT HISTORY: Amaurosis Fugax RIGHT IMAGING FINDINGS: CCA: Mild heterogenous plaque is present. ICA: A hemodynamically significant stenosis is present. ECA: Mild heterogenous plaque is present. Vertebral A: Antegrade flow Comments: Category: V. Near occlusion. There is markedly narrow lumen demonstrated with color and/or power Doppler ultrasound. LEFT IMAGING FINDINGS: CCA: Mild heterogenous plaque is present. ICA: Mild heterogenous plaque without hemodynamically significant stenosis. ECA: Mild heterogenous plaque is present. Vertebral A: Antegrade flow. Comments: Category: II Less than 50% stenosis. ICA PSV less than 180cm/s. Plaque and/or intimal thickening present. RIGHT VELOCITY RECORDINGS Continued Report - Page 2 of 2 Patient: ROMA MUNGUIA Phone#: : 1960 Age: 63 Gender: M Pt. Type: Out Account: [id number] Location: 052 Ordering: SHAREE PRICE Exam Date: 09/09/2024/10:38 Family Phys: Charge Code: [id number] Physician: [place] Order #: [id number] Dose#: Prox CCA: 49.39 cm/s Prox CCA EDV: 6.60 cm/s Mid CCA: 42.26 cm/s Mid CCA EDV: 7.89 cm/s Distal CCA: 45.67 cm/s Distal CCA EDV: 8.46 cm/s ECA: 196.16 cm/s ECA EDV: 21.21 cm/s Prox ICA: 543.76 cm/s Prox ICA EDV: 269.53 cm/s Mid ICA: 117.75 cm/s Mid ICA EDV: 39.67 cm/s Distal ICA: 104.31 cm/s Distal ICA EDV: 32.14 cm/s Vertebral Artery: 42.50 cm/s Vertebral Artery EDV: 17.39 cm/s Subclavian Artery: 114.60 cm/s LEFT VELOCITY RECORDINGS Prox CCA: 93.74 cm/s Prox CCA EDV: 30.50 cm/s Mid CCA: 91.70 cm/s Mid CCA EDV: 29.21 cm/s Distal CCA: 90.86 cm/s Distal CCA EDV: 34.62 cm/s ECA: 78.42 cm/s ECA EDV: 14.98 cm/s Prox ICA: 76.92 cm/s Prox ICA EDV: 29.48 cm/s Mid ICA: 75.92 cm/s Mid ICA EDV: 30.65 cm/s Distal ICA: 71.79 cm/s Distal ICA EDV: 34.53 cm/s Vertebral Artery: 42.38 cm/s Vertebral Artery EDV: 16.98 cm/s Subclavian Artery: 89.53 cm/s ICA/CCA ratio: Right: 12.87 Left: 0.84 CONCLUSION: 1. Right ICA near complete occlusion 2. Left ICA, no hemodynamically significant stenosis Dictated by: Nellie Gonzalez MD on 09/09/2024 at 11:41 Approved by: Nellie Gonzalez MD on 09/09/2024 at 11:48 Normal [facility] Absolute lymphocyte countOrd ered By: Sharee Price on 09-02-2024 Lymphocytes Auto (Unsp spec) [#/Vol] 1.73 10*3/uL 0.83-4.51 [facility] Absolute neutrophil countOrd ered By: Sharee Price on 09-02-2024 Neutrophils (Bld) [#/Vol] 3.8 10*3/uL 2.0-7.7 [facility] Automated blood erythrocyte countOrdered By: Sharee Price on 09-02-2024 RBC (Bld) [#/Vol] 4.77 10*6/uL Normal 4.6 - 6.2 {M/mm3} [facility] Automated blood hematocrit ( percentage)Ordered By: Sharee Price on 09-02-2024 Hematocrit (Bld) [Volume fraction] 42.8 % Normal 40 - 54 [facility] Automated lymphocyte count a s percentage of total leukocytesOrdered By: Sharee Price on 09-02-2024 Lymphocytes/100 WBC Auto (Unsp spec) 27.7 % 19-41 [facility] Basophil percentageOrdered B y: Sharee Price on 09-02-2024 Basophils/100 WBC (Bld) 0.6 % Normal 0 - 1 [facility] CBC W/Diff, Automatedon 08-18 Absolute Lymph 1.73 X10 3/uL Normal 0.83-4.51 [facility] Comment on above: Performed By: #### L 101.9900, L501.6710, L100.0100 #### [facility] [address] [place], [address] Absolute Neut 3.8 X10 3/uL Normal 2.0-7.7 [facility] Comment on above: Performed By: #### L 101.9900, L501.6710, L100.0100 #### [facility] [address] [place], [address] Basophils/100 WBC (Bld) 0.6 % Normal 0-1 [facility] Comment on above: Performed By: #### L 101.9900, L501.6710, L100.0100 #### [facility] [address] [place], [address] Eosinophils/100 WBC (Bld) 0.8 % Normal 0-5 [facility] Comment on above: Performed By: #### L 101.9900, L501.6710, L100.0100 #### [facility] [address] [place], [address] Erythrocyte distribution width (RBC) [Ratio] 13.3 % Normal 11.6-14.6 [facility] Comment on above: Performed By: #### L 101.9900, L501.6710, L100.0100 #### [facility] [address] [place], [address] Hematocrit (Bld) [Volume fraction] 42.8 % Normal 40-54 [facility] Comment on above: Performed By: #### L 101.9900, L501.6710, L100.0100 #### [facility] [address] [place], [address] Hemoglobin (Bld) [Mass/Vol] 14.6 g/dL Normal 13.0-16.5 [facility] Comment on above: Performed By: #### L 101.9900, L501.6710, L100.0100 #### [facility] [address] [place], [address] IG% 0.300 Normal 0.0 - 0.9 [facility] Comment on above: Result Comment: IG% - Immature Granulocytes (promyelocytes, myelocytes and metamyelocytes) > 1% indicates that a LEFT SHIFT is Present. Performed By: #### L 101.9900, L501.6710, L100.0100 #### [facility] [address] [place], [address] Lymphocytes/100 WBC (Bld) 27.7 % Normal 19 - 41 [facility] Comment on above: Performed By: #### L 101.9900, L501.6710, L100.0100 #### [facility] [address] [place], [address] MCH (RBC) [Entitic mass] 30.6 pg Normal 27.0-32.0 [facility] Comment on above: Performed By: #### L 101.9900, L501.6710, L100.0100 #### [facility] [address] [place], [address] MCHC (RBC) [Mass/Vol] 34.1 g/dL Normal 32-36 [facility] Comment on above: Performed By: #### L 101.9900, L501.6710, L100.0100 #### [facility] [address] [place], [address] MCV (RBC) [Entitic vol] 89.7 fL Normal 80-94 [facility] Comment on above: Performed By: #### L 101.9900, L501.6710, L100.0100 #### [facility] [address] [place], [address] Monocytes/100 WBC (Bld) 9.1 % Normal 0-10 [facility] Comment on above: Performed By: #### L 101.9900, L501.6710, L100.0100 #### [facility] [address] [place], [address] Neutrophils/100 WBC (Bld) 61.5 % Normal 47-70 [facility] Comment on above: Performed By: #### L 101.9900, L501.6710, L100.0100 #### [facility] [address] [place], [address] Nucleated RBC (Bld) [#/Vol] 0 10*3/uL Normal 0 - 5 [facility] Comment on above: Performed By: #### L 101.9900, L501.6710, L100.0100 #### [facility] [address] [place], [address] Platelet mean volume (Bld) [Entitic vol] 9.9 fL Normal 6.2-12.0 [facility] Comment on above: Performed By: #### L 101.9900, L501.6710, L100.0100 #### [facility] [address] [place], [address] Platelets (Bld) [#/Vol] 180 10*3/uL Normal 150-450 [facility] Comment on above: Performed By: #### L 101.9900, L501.6710, L100.0100 #### [facility] [address] [place], [address] RBC (Bld) [#/Vol] 4.77 10*6/uL Normal 4.6-6.[address] [facility] Comment on above: Performed By: #### L 101.9900, L501.6710, L100.0100 #### [facility] [address] [place], [address] RDW SD 43.9 fl Normal 35.1 - 43.9 fL [facility] Comment on above: Performed By: #### L 101.9900, L501.6710, L100.0100 #### [facility] [address] [place], [address] WBC (Bld) [#/Vol] 6.2 10*3/uL Normal 4.4-11.[address] [facility] Comment on above: Performed By: #### L 101.9900, L501.6710, L100.0100 #### [facility] [address] [place], [address] CRPon 09-02-2024 C-REACTIVE PROT 5.30 mg/L Abnormal 0.0 - 3.0 mg/L [facility] Comment on above: Performed By: #### L 101.9900, L501.6710, L100.0100 #### [facility] [address] [place], [place], [address] Eosinophil percentageOrdered By: Sharee Price on 09-02-2024 Eosinophils/100 WBC (Bld) 0.8 % Normal 0 - 5 [facility] Erythrocyte Sed Rateon 09-02 SED RATE 27 mm/hr High 0-20 [facility] Comment on above: Performed By: #### L 101.9900, L501.6710, L100.0100 #### [facility] [address] [place], [address] Erythrocyte distribution wid th ratioOrdered By: Sharee Price on 09-02-2024 Erythrocyte distribution width (RBC) [Ratio] 13.3 % Normal 11.6 - 14.6 [facility] Erythrocyte distribution wid th standard deviationOrdered By: Sharee Price on 09-02-2024 Erythrocyte distribution width (RBC) [Ratio] 43.9 fl 35.1-43.9 [facility] Erythrocyte sedimentation ra teOrdered By: Sharee Price on 09-02-2024 ESR (Bld) [Velocity] 27 mm/h High 0-20 [facility] Hemoglobin measurementOrdere d By: Sharee Price on 09-02-2024 Hemoglobin (Bld) [Mass/Vol] 14.6 g/dL Normal 13.0 - 16.5 g/dL [facility] Immature granulocytes/100 WB C Auto (Bld)Ordered By: Sharee Price on 09-02-2024 Immature granulocytes/100 WBC (Bld) 0.300 % 0.0-0.9 [facility] Comment on above: IG% - Immature Granu locytes (promyelocytes, myelocytes and metamyelocytes) > 1% indicates that a LEFT SHIFT is Present. MCV (mean corpuscular volume ) determinationOrdered By: Sharee Price on 09-02-2024 MCV (RBC) [Entitic vol] 89.7 fL Normal 80 - 94 fL [facility] Mean corpuscular hemoglobin (MCH) determinationOrdered By: Sharee Price on 09-02-2024 MCH (RBC) [Entitic mass] 30.6 pg Normal 27. 0 - 32.0 pg [facility] Mean corpuscular hemoglobin concentration (MCHC) determinationOrdered By: Sharee Price on 09-02-2024 MCHC (RBC) [Mass/Vol] 34.1 g/dL Normal 32 - 36 g/dL [facility] Mean platelet volume determi nationOrdered By: Sharee Price on 09-02-2024 Platelet mean volume (Bld) [Entitic vol] 9.9 fL Normal 6.2 - 12.0 fL [facility] Monocyte percentageOrdered B y: Sharee Price on 09-02-2024 Monocytes/100 WBC (Bld) 9.1 % Normal 0 - 10 [facility] Neutrophil percentageOrdered By: Sharee Price on 09-02-2024 Neutrophils/100 WBC (Bld) 61.5 % Normal 47 - 70 [facility] No Panel Informationon 09-02 Absolute Lymph 1.73 {X10_3/uL} Normal 0.83 - 4.5 1 {X10_3/uL} [facility]; [facility]. Work Phone: Absolute Neut 3.8 {X10_3/uL} Normal 2.0 - 7.7 {X10_3/uL} [facility]; [facility]. Work Phone: SED RATE 27 mm/h Abnormal 0 - 20 mm/h [facility]; [facility] Work Phone: Nucleated red blood cell per centageOrdered By: Sharee Price on 09-02-2024 Nucleated RBC/100 WBC (Bld) [Ratio] 0 % 0-5 [facility] Platelet countOrdered By: Jose Elias Price on 09-02-2024 Platelets (Bld) [#/Vol] 180 10*3/uL Normal 150 - 450 K/mm3 [facility] Serum or plasma C reactive p rotein measurement (mass/volume)Ordered By: Sharee Price on 09-02-2024 CRP [Mass/Vol] 5.30 mg/L High 0.0-3.0 [facility] White blood cell (WBC) count Ordered By: Sharee Price on 09-02-2024 WBC (Bld) [#/Vol] 6.2 10*3/uL Normal 4.4 - 11.0 K/mm3 [facility] OPERATIVE PROCEDURESon 04-09 OPERATIVE PROCEDURES [facility] OPERATIVE REPORT NAME ACCOUNT SEX AGE ADMIT DISCHARGE PT MED. RECORD# NUMBER DATE DATE TYPE ROMA MUNGUIA [id number] M 63 04/03/24 2 N [id number] ROOM: [facility] DATE OF : 1960 DICTATING PHYSICIAN: Jeny Moore DATE OF SURGERY: April 03, 2024 SURGEON: Jeny Moore MD LOG HANDLER: ANESTHESIOLOGIST: Jeff Busch CRNA ANESTHETIC: PREOPERATIVE DIAGNOSIS: POSTOPERATIVE DIAGNOSES: 1. Screening colonoscopy. 2. Hemorrhoids. OPERATION PERFORMED: Screening colonoscopy. COMPLICATIONS: ESTIMATED BLOOD LOSS: None. SPECIMEN: None. DISPOSITION: Stable to recovery. INDICATIONS: Roma Munguia is a pleasant 63-year-old gentleman who presents for screening endoscopy. After informed consent and intravenous fluids, he was examined as follows. DESCRIPTION OF OPERATION: The patient was brought to endoscopy, placed on a padded gurney in left lateral decubitus position with adequate padding at pressure points, and time-out and verification had been done. The patient was examined in the left lateral decubitus position with adequate padding at pressure points. He had been given sedation per Anesthesia with monitoring throughout. Digital examination showed external hemorrhoidal tags, normal tone, and no discrete mass. The [employer] Page 1 of 2 ROMA MUNGUIA Operative Report ROMA MUNGUIA : 1960 [id number] flexible colonoscope was introduced through the anal verge and carefully advanced protecting the surrounding mucosa. The scope was advanced through the rectal vault and then through the sigmoid colon, which is rather tortuous. The scope was advanced through the descending colon, beyond the splenic flexure, transverse colon, hepatic flexure, ascending colon toward the ileocecal junction and the landmarks were noted and documented. It should be noted there were numerous food particles, especially in the rectal vault and in the sigmoid area. The prep was not very good, but with copious irrigation and suctioning the view improved. The cecum and ascending colon were carefully viewed. The ascending, transverse, descending, and sigmoid colon were carefully viewed with back and forth movement, circular rotation, irrigation, and suctioning, and then the scope was carefully withdrawn with decompression into the rectal vault, and then the scope was retroflexed, rotated, straightened out, and withdrawn. The patient tolerated the procedure well, and the case will be discussed with the patient when the patient is more awake and alert. I will recommend the patient have repeat endoscopy in 10 years unless he has other risk factors, in which case, he should return sooner. Dictated By: Jeny Moore MD 04/03/24 14:56 JOB #: [id number] Transcribed By: am 04/03/24 15:11 Electronically signed by: E-Sign Dr. Jeny Moore MD 04/09/24 16:00 Page 2 of 2 ROMA MUNGUIA Operative Report Normal [facility] CBC + DIFFon 01-23-2024 Baso # 0.02 x10EE3/UL Normal 0.00 - 0.10 [facility] Comment on above: Performed By: #### 2 52217 #### [place] [address] Basophils/100 WBC (Bld) 0.4 % Normal 0.0 - 2.0 [facility], [facility].; [facility], [facility]. Comment on above: Performed By: #### 2 15045 #### [place] [address] CBC + DIFF Normal [facility] Comment on above: Result Comment: CBC- COMPLETE BLOOD COUNT Performed By: #### 2 55480 #### [place] [address] EO # 0.13 x10EE3/UL Normal 0.00 - 0.50 [facility] Comment on above: Performed By: #### 2 33340 #### [address] [address] Eosinophils/100 WBC (Bld) 2.2 % Normal 0.0 - 7.0 [facility]; [facility], [facility] Comment on above: Performed By: #### 2 54314 #### [place] [address] Erythrocyte distribution width (RBC) [Ratio] 13.7 % Normal 12.0 - 15.6 [facility].; [facility], [facility]. Comment on above: Performed By: #### 2 50926 #### [place] [address] Hematocrit (Bld) [Volume fraction] 42.7 % Normal 40.0 - 52.0 [facility], [facility].; [facility] Comment on above: Performed By: #### 2 36616 #### [place] [address] Hemoglobin (Bld) [Mass/Vol] 14.7 g/dL Normal 13.0 - 17.5 [facility], [facility].; [facility] Comment on above: Performed By: #### 2 88353 #### [place] [address] Lymph # 2.06 x10EE3/UL Normal 0.80 - 2.80 [facility] Comment on above: Performed By: #### 2 98822 #### [place] [address] Lymphocytes/100 WBC (Bld) 34.5 % Normal 20.0 - 45. 0 [facility], [facility].; [facility] Comment on above: Performed By: #### 2 67193 #### [place] [address] MANUAL DIFF N/A Normal [facility].; [facility] Comment on above: Performed By: #### 2 42177 #### [place] [address] MCH (RBC) [Entitic mass] 31 pg Normal 27 - 33 [facility].; [facility] Comment on above: Performed By: #### 2 63074 #### [place] [address] MCHC 34 X10 3 Normal 32 - 36 [facility] Comment on above: Performed By: #### 2 25012 #### [facility],[address] [place] [address] MCV (RBC) [Entitic vol] 91 fL Normal 81 - 98 [facility].; [facility] Comment on above: Performed By: #### 2 91725 #### [place] [address] Harding # 0.55 x10EE3/UL Normal 0.20 - 1.00 [facility] Comment on above: Performed By: #### 2 87813 #### [place] [address] MONOS % 9.1 % Normal 0.0 - 10.0 [facility] Comment on above: Performed By: #### 2 25718 #### [place] [address] Morphology Guevara (Bld) [Interp] N/A Normal [facility]; [facility] Comment on above: Performed By: #### 2 59837 #### [place] [address] Neut # 3.22 x10EE3/UL Normal 1.50 - 7.10 [facility] Comment on above: Performed By: #### 2 20337 #### [place] [address] Neutrophils/100 WBC (Bld) 53.9 % Normal 46.0 - 76. 0 [facility].; [facility] Comment on above: Performed By: #### 2 14582 #### [facility],[address] [place] [address] PLATELET 162 x10EE3/UL Normal 150 - 450 [facility] Comment on above: Performed By: #### 2 66808 #### [facility],[address] [place] [address] Platelet mean volume (Bld) [Entitic vol] 7.9 fL Normal 6.4 - 10.5 [facility]; [facility]. Comment on above: Result Comment: AUTO MATED DIFFERENTIAL Performed By: #### 2 63795 #### [facility],[address] [place] [address] RBC 4.70 x 10EE6/UL Normal 4.50 - 6.00 [facility] Comment on above: Performed By: #### 2 57554 #### [address] [address] WBC 6.0 x 10EE3/UL Normal 4.5 - 10.8 [facility] Comment on above: Performed By: #### 2 25110 #### [facility],[address] [place] [address] CMP with eGFRon 01-23-2024 AGE 63 years Normal [facility] Comment on above: Performed By: #### 2 12179 #### [address] [address] Albumin [Mass/Vol] 3.3 g/dL Low 3.4 - 5.0 [facility].; [facility]. Comment on above: Performed By: #### 2 59487 #### [facility],[address] [place] [address] Albumin/Globulin [Mass ratio] 0.8 {ratio} Low 0.9 - 1.6 [facility] Comment on above: Performed By: #### 2 57390 #### [facility],[address] [place] [address] ALK PHOS 80 U/L Normal 46 - 116 [facility].; [facility], [facility]. Comment on above: Performed By: #### 2 34225 #### [place] [address] ALT [Catalytic activity/Vol] 48 U/L Normal 16 - 63 [facility].; [facility], [facility]. Comment on above: Performed By: #### 2 81241 #### [place] [address] Anion gap [Moles/Vol] 10 mmol/L Normal 10 - 20 [facility], [facility]. Comment on above: Performed By: #### 2 47181 #### [place] [address] AST [Catalytic activity/Vol] 41 U/L High 15 - 37 [facility].; [facility], [facility]. Comment on above: Performed By: #### 2 43041 #### [place] [address] B/C RATIO 14 ratio Normal 0 - 30 [facility] Comment on above: Performed By: #### 2 09864 #### [address] [address] Bilirubin [Mass/Vol] 0.4 mg/dL Normal 0.2 - 1.0 [facility].; [facility], [facility]. Comment on above: Performed By: #### 2 41236 #### [address] [address] Calcium [Mass/Vol] 8.9 mg/dL Normal 8.5 - 10.1 [facility], [facility].; [facility] Comment on above: Performed By: #### 2 53010 #### [place] [address] Chloride [Moles/Vol] 106 mmol/L Normal 98 - 107 [facility]; [facility] Comment on above: Performed By: #### 2 25292 #### [facility],[address] [place] [address] CMP with eGFR Normal [facility] Comment on above: Result Comment: COMP REHENSIVE METABOLIC PANEL Performed By: #### 2 41459 #### [facility],[address] [place], [place] [id number] CO2 [Moles/Vol] 33.6 mmol/L High 21.0 - 32.0 [facility]; [facility] Comment on above: Performed By: #### 2 44052 #### [facility],[address] [place] [address] Creatinine [Mass/Vol] 1.00 mg/dL Normal 0.70 - 1.30 [facility]; [facility]. Comment on above: Performed By: #### 2 75501 #### [facility],[address] [place] [address] GFR/1.73 sq M.predicted among non-blacks MDRD (S/P/Bld) [Vol rate/Area] mL/min/{1.73_m2} Normal 60 - 999 [facility] Comment on above: Performed By: #### 2 47858 #### [facility],[address] [place], [place] [id number] Result Comment: ACCO RDING TO THE NATIONAL KIDNEY DISEASE EDUCATION PROGRAM(NKDE), A NORMAL eGFR IS A VALUE GREATER THAN OR EQUAL TO 60 ML/MIN/1.73 SQ METERS. CHRONIC KIDNEY DISEASE: <60mL/MIN/1.73 SQ METERS KIDNEY FAILURE: <15mL/MIN/1.73 SQ METERS THIS TEST SHOULD ONLY BE USED FOR PATIENTS 18 YEARS OF AGE AND OLDER. Globulin (S) [Mass/Vol] 4.4 g/dL High 1.5 - 3.8 [facility].; [facility] Comment on above: Performed By: #### 2 39871 #### [address] [address] Glucose [Mass/Vol] 104 mg/dL Normal 74 - 106 [facility] Comment on above: Performed By: #### 2 50552 #### [place] [id number] Potassium [Moles/Vol] 4.3 mmol/L Normal 3.5 - 5.1 [facility] Comment on above: Performed By: #### 2 78700 #### [address] [address] Protein [Mass/Vol] 7.7 g/dL Normal 6.4 - 8.2 [facility] Comment on above: Performed By: #### 2 98746 #### [address] [address] Sodium [Moles/Vol] 145 mmol/L Normal 136 - 145 [facility] Comment on above: Performed By: #### 2 05028 #### [address] [address] Urea nitrogen [Mass/Vol] 14 mg/dL Normal 7 - 18 [facility], [facility].; [facility] Comment on above: Performed By: #### 2 17322 #### [address] [address] HEMOGLOBIN A1C (POM)on 01-22 Glucose [Mass/Vol] 119.8 mg/dL High 0.0 - 0.0 [facility] Comment on above: Result Comment: BLDo HEMOGLOBIN A1C REFERENCE RANGESBLDo Suggested Diagnosis HbA1c(%) HbA1C (mmol/mol Diabetic >/=6.5 >/=48 Prediabetes 5.7 - 6.4 39 - 47 Normal <5.7 <39 Performed By: #### 2 91179 #### [facility],[address] [place] [address] HbA1c (Bld) [Mass fraction] 5.8 % Normal 0.0 - 6.5 [facility]; [facility] Comment on above: Performed By: #### 2 06231 #### [facility],[address] [place] [address] LIPID PROFILEon 01-23-2024 Cholesterol [Mass/Vol] 188 mg/dL Normal 0 - 240 [facility]; [facility] Comment on above: Performed By: #### 2 83840 #### [address] [address] Cholesterol in HDL [Mass/Vol] 49 mg/dL Normal 40 - 60 [facility] Comment on above: Performed By: #### 2 27407 #### [address] [address] Cholesterol in LDL [Mass/Vol] 98 mg/dL Normal 0 - 129 [facility]; [facility] Comment on above: Performed By: #### 2 18613 #### [address] [address] Cholesterol.total/Cholest wild in HDL [Mass ratio] 3.8 {ratio} Normal 0.0 - 5.0 [facility]; [facility] Comment on above: Performed By: #### 2 68869 #### [address] [address] Lipid 1996 panel Normal [facility] Comment on above: Result Comment: LIPI D PROFILE Performed By: #### 2 34560 #### [facility] [place] [address] Triglyceride [Mass/Vol] 205 mg/dL High 0 - 150 [facility].; [facility], [facility] Comment on above: Performed By: #### 2 58057 #### [facility],[address] [place] [address] Laboratory - Chemistry and C hemistry - challengeon 01-23-2024 Albumin [Mass/Vol] 0.8 g/dL Abnormal 0.9 - 1.6 [facility], [facility] Average glucose Estimated from glycated hemoglobin (Bld) [Mass/Vol] 119.8 mg/dL Abnormal 0.0 - 0.0 mg/dL [facility]; [facility], [facility] Cholesterol in HDL [Mass or moles/Vol] 49 mg/dL Normal 40 - 60 mg/dL [facility]; [facility], [facility]. GFR/1.73 sq M.predicted among blacks MDRD (S/P/Bld) [Vol rate/Area] mL/min/{1.73_m2} Normal 60 - 999 {ML/MINUTE} [facility].; [facility], [facility]. GFR/1.73 sq M.predicted MDRD (S/P/Bld) [Vol rate/Area] mL/min/{1.73_m2} Normal 60 - 999 {ML/MINUTE} [facility], [facility].; [facility], [facility]. Lipid 1996 panel Normal [facility]3].; [facility], [facility] Prostate specific Ag [Mass/Vol] 0.19 ng/mL Normal 0.00 - 4.00 ng/mL [facility].; [facility], [facility]. Urea nitrogen/Creatinine [Mass ratio] 14 {ratio} Normal 0 - 30 {ratio} [facility].; [facility], [facility] Laboratory - Hematology and Cell countson 01-23-2024 Basophils (Bld) [#/Vol] 0.02 {x10EE3/UL} Normal 0.00 - 0.10 {x10EE3/UL} [facility], [facility]. Eosinophils (Bld) [#/Vol] 0.13 {x10EE3/UL} Normal 0.00 - 0.50 {x10EE3/UL} [facility] Lymphocytes (Bld) [#/Vol] 2.06 {x10EE3/UL} Normal 0.80 - 2.80 {x10EE3/UL} [facility], [facility], [facility]. MCHC (RBC) [Mass/Vol] 34 {X10_3} Normal 32 - 3 6 {X10_3} [facility] [employer] [facility] Monocytes (Bld) [#/Vol] 0.55 {x10EE3/UL} Normal 0.20 - 1.00 {x10EE3/UL} [facility] [employer] [facility] Monocytes/100 WBC (Bld) 9.1 % Normal 0.0 - 10.0 % [facility] [employer] [facility], [facility].; [facility] Neutrophils (Bld) [#/Vol] 3.22 {x10EE3/UL} Normal 1.50 - 7.10 {x10EE3/UL} [facility] [employer] [facility] Platelets (Bld) [#/Vol] 162 {x10EE3/UL} Normal 1 50 - 450 {x10EE3/UL} [facility] [employer] [facility], [facility]. RBC (Bld) [#/Vol] 4.70 {x_10EE6/UL} Normal 4.50 - 6.00 {x_10EE6/UL} [facility] [employer] [facility] WBC (Bld) [#/Vol] 6.0 {x_10EE3/UL} Normal 4.5 - 10.8 {x_10EE3/UL} [facility].; [facility]. No Panel Informationon 01-22 AGE 63 {years} Normal [facility].; [facility], [facility]. CBC + DIFF Normal [facility].; [facility], [facility]. CMP with eGFR Normal [facility].; [facility] Vital Signs Date Time Vital Sign Value Performing Clinician Facility 09-18-2024 12:34-0400 Body temperature 98.2 [degF] Dr. Smita Mcneill MD Work Phone: [facility] 09-18-2024 12:34-0400 Body weight 107.[address] Smita Mcneill MD Work Phone: [facility] 09-18-2024 12:34-0400 Diastolic blood pressure 83 mm[Hg] Dr. Smita Mcneill MD Work Phone: [facility] 09-18-2024 12:34-0400 Heart rate 68 /min Dr. Smita Mcneill MD Work Phone: [facility] 09-18-2024 12:34-0400 Respiratory rate 16 /min Dr. Smita Mcneill MD Work Phone: [facility] 09-18-2024 12:34-0400 SaO2% (BldA) [Mass fraction] 96 % Dr. Smita Mcneill MD Work Phone: [facility] 09-18-2024 12:34-0400 Systolic blood pressure 149 mm[Hg] Dr. Smita Mcneill MD Work Phone: [facility] 09-12-2024 08:39-0400 Body temperature 97.7 [degF] Dr. Smita Mcneill MD Work Phone: [facility] 09-12-2024 08:39-0400 Body weight 107.[address] Smita Mcneill MD Work Phone: [facility] 09-12-2024 08:39-0400 Diastolic blood pressure 79 mm[Hg] Dr. Smita Mcneill MD Work Phone: [facility] 09-12-2024 08:39-0400 Heart rate 63 /min Dr. Smita Mcneill MD Work Phone: [facility] 09-12-2024 08:39-0400 Respiratory rate 16 /min Dr. Smita Mcneill MD Work Phone: [facility] 09-12-2024 08:39-0400 SaO2% (BldA) [Mass fraction] 96 % Dr. Smita Mcneill MD Work Phone: [facility] 09-12-2024 08:39-0400 Systolic blood pressure 132 mm[Hg] Dr. Smita Mcneill MD Work Phone: [facility] 07-23-2024 10:04-0400 Body height 175.26 cm Mckenzie Posey RN [facility], [facility]. 07-23-2024 10:04-0400 Body mass index (BMI) [Ratio] 35.88 kg/m2 Mckenzie Posey RN [facility].; [facility], [facility]. 07-23-2024 10:04-0400 Body surface area Derived from formula 2.24 m2 Mckenzie Posey RN [facility], [facility].; [facility], [facility]. 07-23-2024 10:04-0400 Body weight 110.22 kg Mckenzie Posey RN [facility], [facility].; [facility], [facility]. 07-23-2024 10:04-0400 Diastolic blood pressure 81 mm[Hg] Mckenzie Posey RN [facility].; [facility], [facility]. Comment on above: Patient Position: Sitting; Cuff Location : Left Arm; Cuff Size: Large 07-23-2024 10:04-0400 Heart rate 60 /min Mckenzie Posey RN [facility]. Comment on above: Pattern: Regular 07-23-2024 10:04-0400 Systolic blood pressure 145 mm[Hg] Mckenzie Posey RN [facility] [employer] [facility]; [facility] [place] [employer] [facility]. Comment on above: Patient Position: Sitting; Cuff Location : Left Arm; Cuff Size: Large 01-23-2024 13:59-0500 Body height 175.26 cm Jamil MCNEILL MD Work Phone: [facility]; [email or web address] [facility] [employer] [facility]. 01-23-2024 13:59-0500 Body mass index (BMI) [Ratio] 35.74 kg/m2 Jamil MCNEILL MD Work Phone: [facility] [employer] [facility]; [email or web address] [facility] [employer] [facility]. 01-23-2024 13:59-0500 Body surface area Derived from formula 2.24 m2 Jamil MCNEILL MD Work Phone: [facility]; [email or web address] [facility] [employer]. 01-23-2024 13:59-0500 Body weight 109.77 kg Jamil MCNEILL MD Work Phone: [facility]; [email or web address] [facility] [employer] [facility]. 01-23-2024 13:59-0500 Diastolic blood pressure 85 mm[Hg] Jamil MCNEILL MD Work Phone: [facility]; [email or web address] [facility] [employer] [facility]. Comment on above: Patient Position: Sitting; Cuff Location : Left Arm; Cuff Size: Large 01-23-2024 13:59-0500 Heart rate 60 /min Jamil MCNEILL MD Work Phone: [facility]; [email or web address] [facility] [employer] [facility]. Comment on above: Pattern: Regular 01-23-2024 13:59-0500 Systolic blood pressure 150 mm[Hg] Jamil MCNEILL MD Work Phone: [facility]; [email or web address] [facility] Comment on above: Patient Position: Sitting; Cuff Location : Left Arm; Cuff Size: Large Encounters Encounter Date Encounter Type Care Provider Facility Start: 09-25-2024 ambulatory Marcial Srinivasan Facility:[facility] Start: 09-23-2024 End: 09-23-2024 ambulatory R [facility] Start: 09-18-2024 [facility] Start: 09-18-2024 End: 09-18-[address] Marcial Srinivasan MD -[facility] Work Phone: Start: 09-18-2024 End: 09-18-[address] Smita Mcneill MD Work Phone: -[facility] Start: 09-13-2024 End: 09-13-[address] Smita Mcneill MD Work Phone: [facility] Start: 09-13-2024 End: 09-13-2024 Patient encounter procedure Matilde Hernandez PA -[facility] Work Phone: Start: 09-12-2024 End: 09-12-2024 Patient encounter procedure Matilde DAVID -[facility] Work Phone: Start: 09-12-2024 End: 09-13-[address] Smita Mcneill MD Work Phone: [facility] Work Phone: Start: 09-09-2024 End: 09-09-2024 [facility] Start: 09-02-2024 End: 09-02-[address] Smita Mcneill MD Work Phone: [facility] Work Phone: Start: 09-02-2024 End: 09-02-[address] Sharee Price MD -[facility] Start: 09-02-2024 End: 09-02-2024 ambulatory Smita Mcneill Facility:[facility] Start: 07-23-2024 End: 07-23-2024 Office outpatient visit 15 minutes [facility]3] [employer] Start: 05-07-2024 End: 05-07-2024 Historical Summary BLACK BARBARA Work Phone: [facility] [employer] Start: 05-06-2024 End: 05-06-2024 Historical Summary BLACK JIMENEZ Work Phone: [facility] Start: 04-03-2024 End: 04-03-2024 ambulatory JENY [facility] Start: 01-29-2024 End: 01-29-2024 Results Review BLACK JIMENEZ Work Phone: [facility] Start: 01-23-2024 End: 01-23-2024 ambulatory Jamil ORDOÑEZ [facility] Start: 01-23-2024 End: 01-24-2024 Patient encounter procedure BLACK JIMENEZ Work Phone: [facility] Start: 01-23-2024 End: 01-23-2024 Historical Summary BLACK BARBARA Work Phone: [employer] Start: 01-23-2024 End: 01-23-2024 Office outpatient visit 15 minutes BLACK JIMENEZ Work Phone: [employer] Start: 08-01-2011 End: 08-01-2011 Historical Summary Taker Off [facility] [employer] Procedures Date Procedure Procedure Detail Performing Clinician Start: 09-13-2024 CT angiography of he ad and neck Dr. Smita Mcneill MD Work Phone: Start: 07-23-2024 End: 07-23-2024 Dischrg meds reconciled w/current med list Jamil MCNEILL MD Work Phone: Start: 04-03-2024 End: 04-03-2024 Screening colonoscopy Jamil MCNEILL MD Work Phone: Comment on above: Normal. Repeat 10 ye ars Start: 01-23-2024 PSA screening [place]EMY [place] Comment on above: Performed By: #### [id number] #### [facility],[address] [place] [address] Start: 01-23-2024 End: 01-23-2024 Prevnar 20 Gilda Sanchez RN Comment on above: Had immunization. Plan of Treatment Date Care Activity Detail Author Start: 11-12-2024 Patient encounter procedure Medical; BLOOD PRESSURE CHECK - [facility] [place] [employer] [facility] Start: 12-Nov-2024 09:30-04:00 MD Jamil MCNEILL Appointment Request [facility] [place] [employer] [facility] Start: 11-05-2024 Patient encounter procedure Medical; LAB ONLY - [facility] [place] [employer] [facility] Start: 05-Nov-2024 08:30-04:00 MD Jamil MCNEILL Appointment Request [facility] [address] [facility]. Start: 10-18-2024 Comprehensive metabolic panel CMP - COMPREHENSIVE METABOLIC PANEL (77029) Start: 18-Oct-2024 10:38-04:00 Request [employer]; [email or web address] [facility]. Start: 07-23-2024 MCR/MCR Adv Estab problem management (G2211) MCR/MCR Adv Estab problem management (G2211) Start: 23-Jul-2024 Intent [facility] [employer]; [email or web address] [facility] [employer] [facility]. Start: 07-23-2024 FQHC visit, estab pt Medical; ESTABLISHED PATIENT ROUTINE VISIT - [facility] [employer] Start: 23-Jul-2024 10:00-04:00 MD Jamil MCNEILL Appointment Request [email or web address] [facility] [employer] Start: 02-12-2024 Immunoelectrophoresis serum SERUM PROTEIN ELECTROPHORESIS (32600) - SERUM Start: 12-Feb-2024 Request [facility]; [place] - [facility] [employer]. Start: 01-23-2024 Hemoglobin glycosylated a1c HEMOGLOBIN GLYCLATED (HGB A1C) (46547) Start: 23-Jan-2024 14:55-05:00 Request [employer]. Start: 01-23-2024 Assay of prostate specific antigen total PSA (PROSTATE SPECIFIC ANTIGEN) (72591) Start: 23-Jan-2024 14:55-05:00 Request [employer] [facility] [employer]. Start: 01-23-2024 Lipid panel LIPID PANEL (80384) Start: 23-Jan-2024 14:53-05:00 Request [employer] [facility] [employer] [facility] [employer]. Start: 01-23-2024 Comprehensive metabolic panel CMP - COMPREHENSIVE METABOLIC PANEL (44248) Start: 23-Jan-2024 14:53-05:00 Request [employer] [facility]. Start: 01-23-2024 Blood count complete auto&auto difrntl wbc CBC, PLATELETS & AUT DIFF (04140) Start: 23-Jan-2024 14:53-05:00 Request [employer] [facility] [employer]. Start: 01-23-2024 Im adm prq id subq/im njxs ea vaccine IMMUNIZATION ADMIN EACH ADD (87077) Start: 23-Jan-2024 Intent [employer]; [facility] [employer] [facility] [employer]. CTA Head vessels and Neck vessels W contrast IV [facility] Radionuclide imaging of perfusion of myocardium under exercise stress [facility] Td (7 years and up) Scheduled for Administration Intent [employer] [facility] [employer]. Immunizations Immunization Date Immunization Notes Care Provider Fa cility 01-23-2024 Pneumococcal conjuga te, 20 valent (PCV20) BLACK JIMENEZ Work Phone: [employer]; [facility] [employer]. Comment on above: Site: Left ArmVIS Gi telma: * Pneumococcal Conjugate Vaccine (07/29/22) 01-23-2024 pneumococcal Conjuga te, unspecified formulation BLACK JIMENEZ Work Phone: [employer]; [facility] [employer]. 01-23-2024 *IMMUNIZATION ADMIN ([id number]) BLACK JIMENEZ Work Phone: [employer]; [employer] Payers Date Payer Category Payer Private Health Insurance [id number] 2024 Self-pay 1960 Unknown [id number] 2.16.8 [id number] 1960 Unknown [id number] 2.16.8 [id number] 1960 Unknown [id number] 2.16.8 [id number] 1960 Unknown [id number] 2.16.8 [id number] Unknown [id number] 2.16.8 [id number] Unknown [id number] 2.16.8 [id number] Unknown [id number] 2.16.8 [id number] Unknown [id number] 2.16.8 [id number] Unknown [id number] 2.16.8 [id number] Social History Date Type Detail Facility Start: 1960 Male [facility] Tobacco smoking consumption unknown [employer]; [employer] Work Phone: Alcohol Use: Alcohol Use: ; Y es for Alcohol Use. 1 to 7 drinks per week. 3 drinks per occasion. [employer]; [employer] Tobacco use: Tobacco use: ; F ormer smoker. [employer]; [facility] [employer]. [facility], [employer] Work Phone: Start: 09-12-2024 [facility] tobacco smoker [facility] NEGATED: Highlighted row No Social History Information Available No Social History Information Available [facility] [employer] [facility].; [facility]. Work Phone: Radiology Diagnostic study note 09-13-2024 Note Date & Type Note Facility 09-13-2024 Radiology Diagnostic study note [facility] Services [address] [place], [place] [address] CTA Head AND Neck W/ Contrast MR#: [id number] Acct: [id number] Name: ROMA MUNGUIA Rep #: [id number] : 1960 M 63 From: Ze Castanon MD PCP: Dr. Smita Mcneill MD Status: REG C LI Study:CTA Head AND Neck W/ Contrast Date of E xam: 09/13/24 Exam# [id number] Ordering Dr: Minh Hernandez PROCEDURE: CTA HEAD AND NECK W/ CONTRAST 09/13/2024 REASON FOR EXAM: CRITICAL R ICA STENOSIS TECHNIQUE: CTA HEAD AND NECK W/ CONTRAST Multiplanar Sagittal and Coronal images were obtained. CONTRAST: Isovue 370 VOLUME: 95 mL One or more dose reduction techniques were used (e.g., Automated exposure control, adjustment of the mA and/or kV according to patient size, use of iterative reconstruction technique). RADIATION DOSE SUMMARY: CTDlvol: 28 mGy DLP: 1575.73 mGycm COMPARISON: None FINDINGS: Aortic Arch: Normal size and branching pattern. Mild atherosclerotic plaque. Brachiocephalic and Subclavians: Mild atherosclerotic plaque without significantstenosis. RIGHT Carotid: Right CCA: Unremarkable. Right ICA: At the carotid bifurcation. Maximum stenosis (NASCET): Gradient 90 % Right ECA: Unremarkable. LEFT Carotid: Left CCA: Unremarkable. Left ICA: Unremarkable. Left ECA: Unremarkable. Vertebrals: Codominant. Arise from the subclavians. Both vertebrals form the basilar. RIGHT Vertebral: Unremarkable. LEFT Vertebral: Unremarkable. Anatomy: [place] anatomy is normal. Aneurysm or avm: No intracranial aneurysms or large vascular malformations are identified. Anterior cerebral arteries: Unremarkable: Middle cerebral arteries: Unremarkable. Basilar artery: Unremarkable. Posterior cerebral arteries: Unremarkable. Other major branches of the posterior circulation: Unremarkable. Major venous structures: Unremarkable. Other findings: Neck: Lungs: Bones: CT/CTA Head AND Neck W/ Contrast IMPRESSION: Subtotal occlusion at the origin of the right internal carotid artery. Reading Location: [id number] CC: FRANKIE Mchugh; Dr. Smita Mcneill MD ~ Swatch Clerk: Signed [facility] Evaluation note 09-12-2024 Note Date & Type Note Facility 09-12-2024 Evaluation note Diagnosis Onset Date Resolution Amaurosis fugax of right eye acute September 12, 2024 8:09am Carotid stenosis, right acute September 12, 2024 8:09am [facility] Work Phone: Evaluation note Note Date & Type Note Facility Evaluation note No assessment information availa ble [facility] Work Phone: Evaluation note Note Date & Type Note Facility Evaluation note Diagnosis Onset Date Resolution Amaurosis fugax of right eye acute September 12, 2024 8:09am Carotid stenosis, right acute September 12, 2024 8:09am [facility] Work Phone: Reason for referral (narrative) Note Date & Type Note Facility Reason for referral (narrative) No reason for referral information available [facility] Work Phone: Chief Complaint and Reason for Visit Chief Complaint Admit Date R Carotid Occlusion September 12, 2024 8:09 am CRITICAL R ICA STENOSIS September 13, 2024 11:13am Reason for Visit Admit Date Amaurosis fugax of right eye September 12, 2024 8:09am Carotid stenosis, right September 12, 2024 8:09am Chief Complaint Admit Date R Carotid Occlusion September 12, 2024 8:09 am Chief Complaint Admit Date R Carotid Occlusion September 12, 2024 8:09 am CRITICAL R ICA STENOSIS September 13, 2024 11:13am critical R ICA stenosis September 18, 2024 1 2:16pm Family History No Family History Records Found Relationship Condition Age at Onset Recorded Date/T wayne Not Specified Cardiac disease Unknown Malignant neoplasm Unknown Hypertension Unknown Cerebrovascular accident (CVA) Unknown Summary Purpose Advance Directives No Advanced Directives Records FoundNo Advanced Directives Records Found Additional Source Comments Care Teams (unrecognized sec tion and content) Team Status: Active Member Role Status Dates Dr. Smita Mcneill MD Primary Care Provider Active Team Status: Inactive Member Role Status Dates Dr. Smita Mcneill MD Primary Care Provider Active Start: September 02, 2024 End: September 02, 2024 Dr. Sharee Price MD Attending Provider Active Start: September 02, 2024 End: September 02, 2024 Dr. Sharee Price MD Referring Provider Active Start: September 02, 2024 End: September 02, 2024 Team Status: Inactive Member Role Status Dates Dr. Smita Mcneill MD Primary Care Provider Active Start: September 12, 2024 End: September 12, 2024 FRANKIE Mchugh Attending Provider Active Star t: September 12, 2024 End: September 12, 2024 Dr. Sharee Price MD Referring Provider Active Start: September 12, 2024 End: September 12, 2024 Team Status: Active Member Role/Relationship Status Dates Dr. Smita Mcneill MD Primary Care Provider Active Team Status: Inactive Member Role/Relationship Status Dates Dr. Smita Mcneill MD Primary Care Provider Active Start: September 02, 2024 End: September 02, 2024 Dr. Sharee Price MD Attending Provider Active Start: September 02, 2024 End: September 02, 2024 Dr. Sharee Price MD Referring Provider Active Start: September 02, 2024 End: September 02, 2024 Team Status: Inactive Member Role/Relationship Status Dates Dr. Smita Mcneill MD Primary Care Provider Active Start: September 12, 2024 End: September 12, 2024 FRANKIE Mchugh Attending Provider Active Star t: September 12, 2024 End: September 12, 2024 Dr. Sharee Price MD Referring Provider Active Start: September 12, 2024 End: September 12, 2024 Team Status: Inactive Member Role/Relationship Status Dates Dr. Smita Mcneill MD Primary Care Provider Active Start: September 13, 2024 End: September 13, 2024 FRANKIE Mchugh Attending Provider Active Star t: September 13, 2024 End: September 13, 2024 FRANKIE Mchugh Referring Provider Active Star t: September 13, 2024 End: September 13, 2024 Team Status: Inactive Member Role/Relationship Status Dates Dr. Smita Mcneill MD Primary Care Provider Active Start: September 18, 2024 End: September 18, 2024 Dr. Smita Mcneill MD Referring Provider Active Start: September 18, 2024 End: September 18, 2024 Dr. Marcial Srinivasan MD Attending Provider Active S tart: September 18, 2024 End: September 18, 2024 Goals (unrecognized section and content) Goals may be documented in a n alternate sectionGoals may be documented in an alternate sectionGoals may be documented in an alternate sectionGoals may be documented in an alternate section (unrecognized sect ion and content) No Status Records FoundNo Status Records Found INFORMATION SOURCE (unrecogn ized section and content) DATE CREATED AUTHOR 09/19/2024 [facility] DATE CREATED AUTHOR AUTHOR'S ORGANIZ ATION 09/26/2024 [facility] FOR RECORDS PERTAINING TO PATIENTS WHO ARE OR HAVE BEEN ENROLLED IN A CHEMICAL DEPENDENCY/SUBSTANCEABUSE PROGRAM, SOME INFORMATION MAY BE OMITTED. This clinical summary was aggregated from multiple sources. Caution should be exercised in using it in the provision of clinical care. This summary normalizes information from multiple sources, and as a consequence, information in this document may materially change the coding, format and clinical context of patient data. In addition, data may be omitted in some cases. CLINICAL DECISIONS SHOULD BE BASED ON THE PRIMARY CLINICAL RECORDS. [employer] provides no warranty or guarantee of the accuracy or completeness of information in this document.
--- OUTSIDE RECORDS SUMMARY | 2024-09-26 08:01 | XMS RPT_ITS | CCD ---
Author Organization [facility] CliniSytx Care Team Providers Care Weft Straightener Name Role Phone BLACK JIMENEZ Unavailable Jamil MCNEILL MD Unavailable NURSE, MADELINE Unavailable Unavailable Taty RN, Mckenzie Unavailable Unavailable Unavailable Unavailable Re MCGINNIS, Dr. Ordoñez Primary Care Provider Jhonatan MCGINNIS, Dr. Castañeda Attending Provider [phone] Dr. Sharee Price MD Referring Provider Matilde [place] Attending Provider Matilde [place] Referring Provider [phone] Smita Mcneill MD Referring Provider [phone] Zarina MCGINNIS, Dr. Ceja Attending Provider Hernandez, [...] Primary Care Unavailable Kornhaus, Smita Referring Unavailable [place], Marcial Attending Unavailable Kornhaus, Smita Primary Care Unavailable KORNHAUS, R SMITA Consulting Unavailable HERNANDEZ, MATILDE Admitting Unavailable HERNANDEZ, [...] Reaction(s) Facility (13 sources) Penicillins (Antibiotic) Anaphylaxis [facility]; [place] [facility] (3 sources) Penicillins Allergy to substance 09-12-2024 Anaphylaxis [facility] (1 source) Penicillins Drug allergy (disorder) 09-18-2024 [facility] Repository (1 source) Penicillin Drug Allergy [facility] Repository (1 source) Penicillins Drug allergy (disorder) [facility] Repository Medications Current Medications Medication Drug [...] 30 2 September 12, 2024 12:00am Vitamins A,C,F-Mhrn-Gjelyk (Preservision Areds) 4,296 mcg-226 mg-90 mg capsule (3 sources) Start: 09-10-2024 Vitamins A,C,B-Wkky-Glngqp (Preservision Areds) 4,296 mcg-226 mg-90 mg capsule [...] Interpretation Reference Range Facility MR/BMSShani 09-18-2024 MR[facility]MS.[facility] V[facility] Surgery [address] [place] [address] OFFICE VISIT Date of Service: 09/18/24 MR#: [id number] Acct: [id number] Name: ROMA MUNGUIA Rep #: [id number] : 1960 Provider: Dr. Marcial Srinivasan MD Age/Sex: 63/M Location: [facility] Status: Signed Intake Vital Signs 09/18/24 [...] PO QDAY 09/10/24 09/18/24 Hi story vitamins A,C,S-fbnm-hvlrqp 4,296 1 cap PO BID 09/10/24 09/18/24 [...] Pulses: brach (more content not included)... Normal [facility] CTA Head AND Neck W/ Contras ton 09-13-2024 CTA Head AND Neck W/ Contrast [facility] Imaging Services [address] [place] [address] CTA Head AND Neck W/ Contrast MR#: [id number] Acct: [id number] Name: ROMA MUNGUIA Rep #: [id number] : 1960 M 63 From: Cesar farr MD PCP: Dr. Smita Mcneill MD Status: REG CLI Study: CTA Head AND Neck W/ Contrast Date of Exam: Exam# [id number] Ordering Dr: Matilde Hernandez PROCEDURE: CTA HEAD [...] RIGHT Vertebral: Unremarkable. LEFT Vertebral: Unremarkable. Anatomy: [place] anatomy is normal. Aneurysm or [...] the right internal carotid artery. Reading Location: [id number] CC: FRANKIE Mchugh; Dr. Smita Mcneill MD Computer Network Engineer: Signed Normal [facility] MR/BMS.Sulema 09-12-2024 MR/BMS.[facility] Vascular Surgery [address] [place] [address]. [address] [place] [address] OFFICE VISIT Date of Service: 09/12/24 MR#: [id number] Acct: [id number] Name: ROMA MUNGUIA Rep #: [id number] : 1960 Provider: FRANKIE Mchugh Age/Sex: 63/M [place] [facility] Status: Signed Intake Vital Signs 09/12/24 08:39 [...] PO QDAY 09/10/24 09/10/24 Hi story vitamins A,C,W-soks-uhkzuw 4,296 1 cap PO BID 09/10/24 09/10/24 [...] of carotid artery stenosis as referred from [facility]. He had recent carotid duplex 09/09/24 at [place] performed secondary to R eye vision changes [...] has an upcoming 4 week trip to [place], planned to leave on 09/28. He would [...] all rela (more content not included)... Normal [facility] CV CAROTID STUDY CV CAROTID STUDY [place] [address] Patient: ROMA MUNGUIA Phone#: : 1960 Age: 63 Gender: M Pt. Type: Out Account: [id number] Location: 052 Ordering: SHAREE PRICE Exam Date: 09/09/2024/10:38 Family Phys: Charge Code: [id number] Physician: [place] Order #: [id number] Dose#: PROCEDURE: CAROTID FLOW STUDY COMPARISON: None. INDICATIONS: Amaurosis fugax TECHNIQUE: Color duplex Doppler ultrasound and pulsed Doppler analysis were performed to evaluate the cervical carotid arteries and vertebral flow. All measurements for carotid artery narrowing or stenosis were obtained using the ipsilateral distal internal carotid artery as the reference value. TARIFF SUPERVISOR: RODRIGUEZ BAIG RVMar RDCS PT HISTORY: Amaurosis [...] 63 Gender: M Pt. Type: Out Account: [id number] Location: 052 Ordering: SHAREE PRICE Exam Date: 09/09/2024/10:38 Family Phys: Charge Code: [id number] Physician: [place] Order #: [id number] Dose#: Prox CCA: 49.39 cm/s Prox CCA [...] Gonzalez MD on 09/09/2024 at 11:48 Normal [facility] Absolute lymphocyte countOrd ered By: Sharee Price on 09-02-2024 Lymphocytes Auto (Unsp spec) [#/Vol] 1.73 10*3/uL 0.83-4.51 [facility] Absolute neutrophil countOrd ered By: Sharee Price on 09-02-2024 Neutrophils (Bld) [#/Vol] 3.8 10*3/uL 2.0-7.7 [facility] Automated blood erythrocyte countOrdered By: Sharee Price on 09-02-2024 RBC (Bld) [#/Vol] 4.77 10*6/uL Normal 4.6 - 6.2 {M/mm3} [facility] Automated blood hematocrit ( percentage)Ordered By: Sharee Price on 09-02-2024 Hematocrit (Bld) [Volume fraction] 42.8 % Normal 40 - 54 [facility] Automated lymphocyte count a s percentage of total leukocytesOrdered By: Sharee Price on 09-02-2024 Lymphocytes/100 WBC Auto (Unsp spec) 27.7 % 19-41 [facility] Basophil percentageOrdered B y: Sharee Price on 09-02-2024 Basophils/100 WBC (Bld) 0.6 % Normal 0 - 1 [facility] CBC W/Diff, Automatedon 08-18 Absolute Lymph 1.73 X10 3/uL Normal 0.83-4.51 [facility] Comment on above: Performed By: #### L 101.9900, L501.6710, L100.0100 #### [facility] [address] [place], [address] Absolute Neut 3.8 X10 3/uL Normal 2.0-7.7 [facility] Comment on above: Performed By: #### L 101.9900, L501.6710, L100.0100 #### [facility] [address] [place], [address] Basophils/100 WBC (Bld) 0.6 % Normal 0-1 [facility] Comment on above: Performed By: #### L 101.9900, L501.6710, L100.0100 #### [facility] [address] [place], [address] Eosinophils/100 WBC (Bld) 0.8 % Normal 0-5 [facility] Comment on above: Performed By: #### L 101.9900, L501.6710, L100.0100 #### [facility] [address] [place], [address] Erythrocyte distribution width (RBC) [Ratio] 13.3 % Normal 11.6-14.6 [facility] Comment on above: Performed By: #### L 101.9900, L501.6710, L100.0100 #### [facility] [address] [place], [address] Hematocrit (Bld) [Volume fraction] 42.8 % Normal 40-54 [facility] Comment on above: Performed By: #### L 101.9900, L501.6710, L100.0100 #### [facility] [address] [place], [address] Hemoglobin (Bld) [Mass/Vol] 14.6 g/dL Normal 13.0-16.5 [facility] Comment on above: Performed By: #### L 101.9900, L501.6710, L100.0100 #### [facility] [address] [place], [address] IG% 0.300 Normal 0.0 - 0.9 [facility] Comment on above: Result Comment: IG% - Immature Granulocytes (promyelocytes, myelocytes and metamyelocytes) > 1% indicates that a LEFT SHIFT is Present. Performed By: #### L 101.9900, L501.6710, L100.0100 #### [facility] [address] [place], [address] Lymphocytes/100 WBC (Bld) 27.7 % Normal 19 - 41 [facility] Comment on above: Performed By: #### L 101.9900, L501.6710, L100.0100 #### [facility] [address] [place], [address] MCH (RBC) [Entitic mass] 30.6 pg Normal 27.0-32.0 [facility] Comment on above: Performed By: #### L 101.9900, L501.6710, L100.0100 #### [facility] [address] [place], [address] MCHC (RBC) [Mass/Vol] 34.1 g/dL Normal 32-36 [facility] Comment on above: Performed By: #### L 101.9900, L501.6710, L100.0100 #### [facility] [address] [place], [address] MCV (RBC) [Entitic vol] 89.7 fL Normal 80-94 [facility] Comment on above: Performed By: #### L 101.9900, L501.6710, L100.0100 #### [facility] [address] [place], [address] Monocytes/100 WBC (Bld) 9.1 % Normal 0-10 [facility] Comment on above: Performed By: #### L 101.9900, L501.6710, L100.0100 #### [facility] [address] [place], [address] Neutrophils/100 WBC (Bld) 61.5 % Normal 47-70 [facility] Comment on above: Performed By: #### L 101.9900, L501.6710, L100.0100 #### [facility] [address] [place], [address] Nucleated RBC (Bld) [#/Vol] 0 10*3/uL Normal 0 - 5 [facility] Comment on above: Performed By: #### L 101.9900, L501.6710, L100.0100 #### [facility] [address] [place], [address] Platelet mean volume (Bld) [Entitic vol] 9.9 fL Normal 6.2-12.0 [facility] Comment on above: Performed By: #### L 101.9900, L501.6710, L100.0100 #### [facility] [address] [place], [address] Platelets (Bld) [#/Vol] 180 10*3/uL Normal 150-450 [facility] Comment on above: Performed By: #### L 101.9900, L501.6710, L100.0100 #### [facility] [address] [place], [address] RBC (Bld) [#/Vol] 4.77 10*6/uL Normal 4.6-6.2 [facility] Comment on above: Performed By: #### L 101.9900, L501.6710, L100.0100 #### [facility] [address] [place], [address] RDW SD 43.9 fl Normal 35.1 - 43.9 fL [facility] Comment on above: Performed By: #### L 101.9900, L501.6710, L100.0100 #### [facility] [address] [place], [address] WBC (Bld) [#/Vol] 6.2 10*3/uL Normal 4.4-11.0 [facility] Comment on above: Performed By: #### L 101.9900, L501.6710, L100.0100 #### [facility] [address] [place], [address] CRPon 09-02-2024 C-REACTIVE PROT 5.30 mg/L Abnormal 0.0 - 3.0 mg/L [facility] Comment on above: Performed By: #### L 101.9900, L501.6710, L100.0100 #### [facility] [address] [place], [place], [address] Eosinophil percentageOrdered By: Sharee Price on 09-02-2024 Eosinophils/100 WBC (Bld) 0.8 % Normal 0 - 5 [facility] Erythrocyte Sed Rateon 09-02 SED RATE 27 mm/hr High 0-20 [facility] Comment on above: Performed By: #### L 101.9900, L501.6710, L100.0100 #### [facility] [address] [place], [address] Erythrocyte distribution wid th ratioOrdered By: Sharee Price on 09-02-2024 Erythrocyte distribution width (RBC) [Ratio] 13.3 % Normal 11.6 - 14.6 [facility] Erythrocyte distribution wid th standard deviationOrdered By: Sharee Price on 09-02-2024 Erythrocyte distribution width (RBC) [Ratio] 43.9 fl 35.1-43.9 [facility] Erythrocyte sedimentation ra teOrdered By: Sharee Price on 09-02-2024 ESR (Bld) [Velocity] 27 mm/h High 0-20 [facility] Hemoglobin measurementOrdere d By: Sharee Price on 09-02-2024 Hemoglobin (Bld) [Mass/Vol] 14.6 g/dL Normal 13.0 - 16.5 g/dL [facility] Immature granulocytes/100 WB C Auto (Bld)Ordered By: Sharee Price on 09-02-2024 Immature granulocytes/100 WBC (Bld) 0.300 % 0.0-0.9 [facility] Comment on above: IG% - Immature Granu locytes (promyelocytes, myelocytes and metamyelocytes) > 1% indicates that a LEFT SHIFT is Present. MCV (mean corpuscular volume ) determinationOrdered By: Sharee Price on 09-02-2024 MCV (RBC) [Entitic vol] 89.7 fL Normal 80 - 94 fL [facility] Mean corpuscular hemoglobin (MCH) determinationOrdered By: Sharee Price on 09-02-2024 MCH (RBC) [Entitic mass] 30.6 pg Normal 27. 0 - 32.0 pg [facility] Mean corpuscular hemoglobin concentration (MCHC) determinationOrdered By: Sharee Price on 09-02-2024 MCHC (RBC) [Mass/Vol] 34.1 g/dL Normal 32 - 36 g/dL [facility] Mean platelet volume determi nationOrdered By: Sharee Price on 09-02-2024 Platelet mean volume (Bld) [Entitic vol] 9.9 fL Normal 6.2 - 12.0 fL [facility] Monocyte percentageOrdered B y: Sharee Price on 09-02-2024 Monocytes/100 WBC (Bld) 9.1 % Normal 0 - 10 [facility] Neutrophil percentageOrdered By: Sharee Price on 09-02-2024 Neutrophils/100 WBC (Bld) 61.5 % Normal 47 - 70 [facility] No Panel Informationon 09-02 Absolute Lymph 1.73 {X10_3/uL} Normal 0.83 - 4.5 1 {X10_3/uL} [facility]; [facility]. Work Phone: Absolute Neut 3.8 {X10_3/uL} Normal 2.0 - 7.7 {X10_3/uL} [facility]; [facility]. Work Phone: SED RATE 27 mm/h Abnormal 0 - 20 mm/h [facility]; [facility] Work Phone: Nucleated red blood cell per centageOrdered By: Sharee Price on 09-02-2024 Nucleated RBC/100 WBC (Bld) [Ratio] 0 % 0-5 [facility] Platelet countOrdered By: Jose Elias Price on 09-02-2024 Platelets (Bld) [#/Vol] 180 10*3/uL Normal 150 - 450 K/mm3 [facility] Serum or plasma C reactive p rotein measurement (mass/volume)Ordered By: Sharee Price on 09-02-2024 CRP [Mass/Vol] 5.30 mg/L High 0.0-3.0 [facility] White blood cell (WBC) count Ordered By: Sharee Price on 09-02-2024 WBC (Bld) [#/Vol] 6.2 10*3/uL Normal 4.4 - 11.0 K/mm3 [facility] OPERATIVE PROCEDURESon 04-09 OPERATIVE PROCEDURES [facility] OPERATIVE REPORT NAME ACCOUNT SEX AGE ADMIT DISCHARGE PT MED. RECORD# NUMBER DATE DATE TYPE ROMA MUNGUIA [id number] M 63 04/03/24 2 N [id number] ROOM: [facility] DATE OF : 1960 DICTATING PHYSICIAN: Jeny Moore DATE OF SURGERY: April 03, 2024 SURGEON: Jeny Moore MD VP ANALYSIS: ANESTHESIOLOGIST: Jeff Busch CRNA ANESTHETIC: PREOPERATIVE DIAGNOSIS: [...] MUNGUIA Operative Report ROMA MUNGUIA : 1960 [id number] flexible colonoscope was introduced through the anal [...] Jeny Moore MD 04/03/24 14:56 JOB #: [id number] Transcribed By: am 04/03/24 15:11 Electronically signed by: E-Sign Dr. Jeny Moore MD 04/09/24 16:00 Page 2 of 2 ROMA MUNGUIA Operative Report Normal [facility] CBC + DIFFon 01-23-2024 Baso # 0.02 x10EE3/UL Normal 0.00 - 0.10 [facility] Comment on above: Performed By: #### 2 20697 #### [place] [address] Basophils/100 WBC (Bld) 0.4 % Normal 0.0 - 2.0 [facility], [facility], [facility]. Comment on above: Performed By: #### 2 88257 #### [place] [address] CBC + DIFF Normal [facility] Comment on above: Result Comment: CBC- COMPLETE BLOOD COUNT Performed By: #### 2 25876 #### [place] [address] EO # 0.13 x10EE3/UL Normal 0.00 - 0.50 [facility] Comment on above: Performed By: #### 2 60783 #### [address] [address] Eosinophils/100 WBC (Bld) 2.2 % Normal 0.0 - 7.0 [facility]; [facility], [facility] Comment on above: Performed By: #### 2 12450 #### [place] [address] Erythrocyte distribution width (RBC) [Ratio] 13.7 % Normal 12.0 - 15.6 [facility] [place] [facility], [facility]. Comment on above: Performed By: #### 2 09993 #### [place] [address] Hematocrit (Bld) [Volume fraction] 42.7 % Normal 40.0 - 52.0 [facility], [facility].; [facility] Comment on above: Performed By: #### 2 19535 #### [place] [address] Hemoglobin (Bld) [Mass/Vol] 14.7 g/dL Normal 13.0 - 17.5 [facility], [facility].; [facility] Comment on above: Performed By: #### 2 20950 #### [place] [address] Lymph # 2.06 x10EE3/UL Normal 0.80 - 2.80 [facility] Comment on above: Performed By: #### 2 48109 #### [place] [address] Lymphocytes/100 WBC (Bld) 34.5 % Normal 20.0 - 45. 0 [facility], [facility].; [facility] Comment on above: Performed By: #### 2 79296 #### [place] [address] MANUAL DIFF N/A Normal [facility] [place] Comment on above: Performed By: #### 2 10972 #### [place] [address] MCH (RBC) [Entitic mass] 31 pg Normal 27 - 33 [facility] [place] Comment on above: Performed By: #### 2 08965 #### [place] [address] MCHC 34 X10 3 Normal 32 - 36 [facility] Comment on above: Performed By: #### 2 75956 #### [facility],[address] [place] [address] MCV (RBC) [Entitic vol] 91 fL Normal 81 - 98 [facility].; [facility] Comment on above: Performed By: #### 2 80804 #### [place] [address] Barron # 0.55 x10EE3/UL Normal 0.20 - 1.00 [facility] Comment on above: Performed By: #### 2 67727 #### [place] [address] MONOS % 9.1 % Normal 0.0 - 10.0 [facility] Comment on above: Performed By: #### 2 32051 #### [place] [address] Morphology Guevara (Bld) [Interp] N/A Normal [facility]; [facility] Comment on above: Performed By: #### 2 94700 #### [place] [address] Neut # 3.22 x10EE3/UL Normal 1.50 - 7.10 [facility] Comment on above: Performed By: #### 2 98531 #### [place] [address] Neutrophils/100 WBC (Bld) 53.9 % Normal 46.0 - 76. 0 [facility] [place] Comment on above: Performed By: #### 2 71629 #### [facility],[address] [place] [address] PLATELET 162 x10EE3/UL Normal 150 - 450 [facility] Comment on above: Performed By: #### 2 30371 #### [facility],[address] [place] [address] Platelet mean volume (Bld) [Entitic vol] 7.9 fL Normal 6.4 - 10.5 [facility]; [facility]. Comment on above: Result Comment: AUTO MATED DIFFERENTIAL Performed By: #### 2 95559 #### [facility],[address] [place] [address] RBC 4.70 x 10EE6/UL Normal 4.50 - 6.00 [facility] Comment on above: Performed By: #### 2 55426 #### [address] [address] WBC 6.0 x 10EE3/UL Normal 4.5 - 10.8 [facility] Comment on above: Performed By: #### 2 37948 #### [facility],[address] [place] [address] CMP with eGFRon 01-23-2024 AGE 63 years Normal [facility] Comment on above: Performed By: #### 2 98794 #### [address] [address] Albumin [Mass/Vol] 3.3 g/dL Low 3.4 - 5.0 [facility].; [facility]. Comment on above: Performed By: #### 2 92801 #### [facility],[address] [place] [address] Albumin/Globulin [Mass ratio] 0.8 {ratio} Low 0.9 - 1.6 [facility] Comment on above: Performed By: #### 2 18138 #### [facility],[address] [place] [address] ALK PHOS 80 U/L Normal 46 - 116 [facility] [place], [facility]. Comment on above: Performed By: #### 2 46546 #### [place] [address] ALT [Catalytic activity/Vol] 48 U/L Normal 16 - 63 [facility] [place], [facility]. Comment on above: Performed By: #### 2 18468 #### [place] [address] Anion gap [Moles/Vol] 10 mmol/L Normal 10 - 20 [facility].; [facility], [facility]. Comment on above: Performed By: #### 2 04342 #### [place] [address] AST [Catalytic activity/Vol] 41 U/L High 15 - 37 [facility] [place].; [facility], [facility]. Comment on above: Performed By: #### 2 90907 #### [place] [address] B/C RATIO 14 ratio Normal 0 - 30 [facility] Comment on above: Performed By: #### 2 29249 #### [address] [address] Bilirubin [Mass/Vol] 0.4 mg/dL Normal 0.2 - 1.0 [facility] [place].; [facility], [facility]. Comment on above: Performed By: #### 2 57228 #### [address] [address] Calcium [Mass/Vol] 8.9 mg/dL Normal 8.5 - 10.1 [facility], [facility].; [facility] Comment on above: Performed By: #### 2 81729 #### [place] [address] Chloride [Moles/Vol] 106 mmol/L Normal 98 - 107 [facility]; [facility] Comment on above: Performed By: #### 2 93134 #### [facility],[address] [place] [address] CMP with eGFR Normal [facility] Comment on above: Result Comment: COMP REHENSIVE METABOLIC PANEL Performed By: #### 2 58287 #### [facility],[address] [place], [place] [address] CO2 [Moles/Vol] 33.6 mmol/L High 21.0 - 32.0 [facility]; [facility] Comment on above: Performed By: #### 2 67010 #### [facility],[address] [place] [address] Creatinine [Mass/Vol] 1.00 mg/dL Normal 0.70 - 1.30 [facility]; [facility]. Comment on above: Performed By: #### 2 71592 #### [facility],[address] [place] [address] GFR/1.73 sq M.predicted among non-blacks MDRD (S/P/Bld) [Vol rate/Area] mL/min/{1.73_m2} Normal 60 - 999 [facility] Comment on above: Performed By: #### 2 15240 #### [facility],[address] [place], [place] [address] Result Comment: ACCO RDING TO THE NATIONAL KIDNEY DISEASE EDUCATION PROGRAM(NKDE), A NORMAL eGFR IS A VALUE GREATER THAN OR EQUAL TO 60 ML/MIN/1.73 SQ METERS. CHRONIC KIDNEY DISEASE: <60mL/MIN/1.73 SQ METERS KIDNEY FAILURE: <15mL/MIN/1.73 SQ METERS THIS TEST SHOULD ONLY BE USED FOR PATIENTS 18 YEARS OF AGE AND OLDER. Globulin (S) [Mass/Vol] 4.4 g/dL High 1.5 - 3.8 [facility] [employer] [facility] Comment on above: Performed By: #### 2 57071 #### [address] [address] Glucose [Mass/Vol] 104 mg/dL Normal 74 - 106 [facility] Comment on above: Performed By: #### 2 16406 #### [place] [id number] Potassium [Moles/Vol] 4.3 mmol/L Normal 3.5 - 5.1 [facility].; [facility] Comment on above: Performed By: #### 2 01866 #### [address] [address] Protein [Mass/Vol] 7.7 g/dL Normal 6.4 - 8.2 [facility] Comment on above: Performed By: #### 2 19116 #### [address] [address] Sodium [Moles/Vol] 145 mmol/L Normal 136 - 145 [facility] Comment on above: Performed By: #### 2 48835 #### [address] [address] Urea nitrogen [Mass/Vol] 14 mg/dL Normal 7 - 18 [facility], [facility].; [facility] [facility] Comment on above: Performed By: #### 2 [id number] #### [address] [address] HEMOGLOBIN A1C (POM)on 01-22 Glucose [Mass/Vol] 119.8 mg/dL High 0.0 - 0.0 [facility] Comment on above: Result Comment: BLDo HEMOGLOBIN A1C REFERENCE RANGESBLDo Suggested Diagnosis HbA1c(%) HbA1C (mmol/mol Diabetic >/=6.5 >/=48 Prediabetes 5.7 - 6.4 39 - 47 Normal <5.7 <39 Performed By: #### 2 [id number] #### [facility],[address] [place] [id number] HbA1c (Bld) [Mass fraction] 5.8 % Normal 0.0 - 6.5 [facility]; [facility] Comment on above: Performed By: #### 2 [id number] #### [facility],[address] [place] [address] LIPID PROFILEon 01-23-2024 Cholesterol [Mass/Vol] 188 mg/dL Normal 0 - 240 [facility]; [facility] Comment on above: Performed By: #### 2 [id number] #### [address] [address] Cholesterol in HDL [Mass/Vol] 49 mg/dL Normal 40 - 60 [facility] Comment on above: Performed By: #### 2 [id number] #### [address] [address] Cholesterol in LDL [Mass/Vol] 98 mg/dL Normal 0 - 129 [facility]; [facility] Comment on above: Performed By: #### 2 [id number] #### [address] [address] Cholesterol.total/Cholest wild in HDL [Mass ratio] 3.8 {ratio} Normal 0.0 - 5.0 [facility]; [facility] Comment on above: Performed By: #### 2 50069 #### [address] [address] Lipid 1996 panel Normal [facility] Comment on above: Result Comment: LIPI D PROFILE Performed By: #### 2 [id number] #### [facility] [place] [address] Triglyceride [Mass/Vol] 205 mg/dL High 0 - 150 [facility].; [facility], [facility] Comment on above: Performed By: #### 2 [id number] #### [facility],[address] [place] [address] Laboratory - Chemistry and C hemistry - challengeon 01-23-2024 Albumin [Mass/Vol] 0.8 g/dL Abnormal 0.9 - 1.6 [facility]; [facility], [facility] Average glucose Estimated from glycated hemoglobin (Bld) [Mass/Vol] 119.8 mg/dL Abnormal 0.0 - 0.0 mg/dL [facility]; [facility], [facility] Cholesterol in HDL [Mass or moles/Vol] 49 mg/dL Normal 40 - 60 mg/dL [facility]; [facility], [facility]. GFR/1.73 sq M.predicted among blacks MDRD (S/P/Bld) [Vol rate/Area] mL/min/{1.73_m2} Normal 60 - 999 {ML/MINUTE} [facility] [place] [facility], [facility]. GFR/1.73 sq M.predicted MDRD (S/P/Bld) [Vol rate/Area] mL/min/{1.73_m2} Normal 60 - 999 {ML/MINUTE} [facility], [facility].; [facility], [facility]. Lipid 1996 panel Normal [facility].; [facility], [facility] Prostate specific Ag [Mass/Vol] 0.19 ng/mL Normal 0.00 - 4.00 ng/mL [facility] [place], [facility]. Urea nitrogen/Creatinine [Mass ratio] 14 {ratio} Normal 0 - 30 {ratio} [facility] [place] [facility], [facility] Laboratory - Hematology and Cell countson 01-23-2024 Basophils (Bld) [#/Vol] 0.02 {x10EE3/UL} Normal 0.00 - 0.10 {x10EE3/UL} [facility], [facility]. Eosinophils (Bld) [#/Vol] 0.13 {x10EE3/UL} Normal 0.00 - 0.50 {x10EE3/UL} [facility] Lymphocytes (Bld) [#/Vol] 2.06 {x10EE3/UL} Normal 0.80 - 2.80 {x10EE3/UL} [facility], [facility]. MCHC (RBC) [Mass/Vol] 34 {X10_3} Normal 32 - 3 6 {X10_3} [facility] [employer] [facility].; [facility] Monocytes (Bld) [#/Vol] 0.55 {x10EE3/UL} Normal 0.20 - 1.00 {x10EE3/UL} [facility] [employer] [facility].; [facility] Monocytes/100 WBC (Bld) 9.1 % Normal 0.0 - 10.0 % [facility] [employer] [facility], [facility].; [facility], [facility] Neutrophils (Bld) [#/Vol] 3.22 {x10EE3/UL} Normal 1.50 - 7.10 {x10EE3/UL} [facility] [employer] [facility].; [facility] Platelets (Bld) [#/Vol] 162 {x10EE3/UL} Normal 1 50 - 450 {x10EE3/UL} [facility] [employer] [facility], [facility].; [facility], [facility]. RBC (Bld) [#/Vol] 4.70 {x_10EE6/UL} Normal 4.50 - 6.00 {x_10EE6/UL} [facility] [employer] [facility].; [facility] WBC (Bld) [#/Vol] 6.0 {x_10EE3/UL} Normal 4.5 - 10.8 {x_10EE3/UL} [facility]. No Panel Informationon 01-22 AGE 63 {years} Normal [facility].; [facility], [facility]. CBC + DIFF Normal [facility].; [facility], [facility]. CMP with eGFR Normal [facility].; [facility] Vital Signs Date Time Vital Sign Value Performing Clinician Facility 09-18-2024 12:34-0400 Body temperature 98.2 [degF] Dr. Smita Mcneill MD Work Phone: [facility] 09-18-2024 12:34-0400 Body weight 107.[address] Smita Mcneill MD Work Phone: [facility] 09-18-2024 12:34-0400 Diastolic blood pressure 83 mm[Hg] Dr. Smita Mcneill MD Work Phone: [facility] 09-18-2024 12:34-0400 Heart rate 68 /min Dr. Smita Mcneill MD Work Phone: [facility] 09-18-2024 12:34-0400 Respiratory rate 16 /min Dr. Smita Mcneill MD Work Phone: [facility] 09-18-2024 12:34-0400 SaO2% (BldA) [Mass fraction] 96 % Dr. Smita Mcneill MD Work Phone: [facility] 09-18-2024 12:34-0400 Systolic blood pressure 149 mm[Hg] Dr. Smita Mcneill MD Work Phone: [facility] 09-12-2024 08:39-0400 Body temperature 97.7 [degF] Dr. Smita Mcneill MD Work Phone: [facility] 09-12-2024 08:39-0400 Body weight 107.[address] Smita Mcneill MD Work Phone: [facility] 09-12-2024 08:39-0400 Diastolic blood pressure 79 mm[Hg] Dr. Smita Mcneill MD Work Phone: [facility] 09-12-2024 08:39-0400 Heart rate 63 /min Dr. Smita Mcneill MD Work Phone: [facility] 09-12-2024 08:39-0400 Respiratory rate 16 /min Dr. Smita Mcneill MD Work Phone: [facility] 09-12-2024 08:39-0400 SaO2% (BldA) [Mass fraction] 96 % Dr. Smita Mcneill MD Work Phone: [facility] 09-12-2024 08:39-0400 Systolic blood pressure 132 mm[Hg] Dr. Smita Mcneill MD Work Phone: [facility] 07-23-2024 10:04-0400 Body height 175.26 cm Mckenzie [facility]osey RN [facility], [facility]. 07-23-2024 10:04-0400 Body mass index (BMI) [Ratio] 35.88 kg/m2 Mckenzie Posey RN [facility].; [facility], [facility]. 07-23-2024 10:04-0400 Body surface area Derived from formula 2.24 m2 Mckenzie Posey RN [facility], [facility].; [facility], [facility]. 07-23-2024 10:04-0400 Body weight 110.22 kg Mckenzie Posey RN [facility], [facility].; [facility], [facility]. 07-23-2024 10:04-0400 Diastolic blood pressure 81 mm[Hg] Mckenzie Posey RN [facility].; [facility], [facility]. Comment on above: Patient Position: Sitting; Cuff Location : Left Arm; Cuff Size: Large 07-23-2024 10:04-0400 Heart rate 60 /min Mckenzie Posey RN [facility]. Comment on above: Pattern: Regular 07-23-2024 10:04-0400 Systolic blood pressure 145 mm[Hg] Mckenzie Posey RN [facility] [employer] [facility]; [facility] [employer] [facility]. Comment on above: Patient Position: Sitting; Cuff Location : Left Arm; Cuff Size: Large 01-23-2024 13:59-0500 Body height 175.26 cm Jamil MCNEILL MD Work Phone: [facility]; [employer] [facility] [employer] [facility]. 01-23-2024 13:59-0500 Body mass index (BMI) [Ratio] 35.74 kg/m2 Jamil MCNEILL MD Work Phone: [facility] [employer] [facility]; [employer] [facility] [employer] [facility]. 01-23-2024 13:59-0500 Body surface area Derived from formula 2.24 m2 Jamil MCNEILL MD Work Phone: [facility]; [employer] [facility] [employer] 01-23-2024 13:59-0500 Body weight 109.77 kg Jamil MCNEILL MD Work Phone: [facility]; [employer] [facility] [employer] [facility]. 01-23-2024 13:59-0500 Diastolic blood pressure 85 mm[Hg] Jamil MCNEILL MD Work Phone: [facility] [employer]; [employer] [facility] [employer] [facility]. Comment on above: Patient Position: Sitting; Cuff Location : Left Arm; Cuff Size: Large 01-23-2024 13:59-0500 Heart rate 60 /min Jamil MCNEILL MD Work Phone: [facility]; [employer] [facility] [employer] [facility]. Comment on above: Pattern: Regular 01-23-2024 13:59-0500 Systolic blood pressure 150 mm[Hg] Jamil MCNEILL MD Work Phone: [facility]; [employer] [facility] Comment on above: Patient Position: Sitting; Cuff Location : Left Arm; Cuff Size: Large Encounters Encounter Date Encounter Type Care Provider Facility Start: 09-25-2024 ambulatory Marcial Srinivasan Facility:[facility] Start: 09-23-2024 End: 09-23-2024 ambulatory R [facility] Start: 09-18-2024 Encounter for [facility]ced[facility] Start: 09-18-2024 End: 09-18-[address] Marcial Srinivasan MD -[facility] Work Phone: Start: 09-18-2024 End: 09-18-[address] Smita Mcneill MD Work Phone: -[facility] Start: 09-13-2024 End: 09-13-[address] Smita Mcneill MD Work Phone: -[facility] Start: 09-13-2024 End: 09-13-2024 Patient encounter procedure Matilde Hernandez PA -[facility] Work Phone: Start: 09-12-2024 End: 09-12-2024 Patient encounter procedure Matilde DAVID -[facility] Work Phone: Start: 09-12-2024 End: 09-13-[address] Smita Mcneill MD Work Phone: [facility] Work Phone: Start: 09-09-2024 End: 09-09-2024 [facility] Start: 09-02-2024 End: 09-02-[address] Smita Mcneill MD Work Phone: [facility] Work Phone: Start: 09-02-2024 End: 09-02-[address] Sharee Price MD -[facility] Start: 09-02-2024 End: 09-02-2024 ambulatory Smita Mcneill Facility:[facility] Start: 07-23-2024 End: 07-23-2024 Office outpatient visit 15 minutes [place] [facility] [employer] Start: 05-07-2024 End: 05-07-2024 Historical Summary BLACK BARBARA Work Phone: [employer] Start: 05-06-2024 End: 05-06-2024 Historical Summary BLACK JIMENEZ Work Phone: [facility] [employer] Start: 04-03-2024 End: 04-03-2024 ambulatory [facility] Start: 01-29-2024 End: 01-29-2024 Results Review BLACK JIMENEZ Work Phone: [facility] [employer] Start: 01-23-2024 End: 01-23-2024 ambulatory Jamil ORDOÑEZ [facility] Start: 01-23-2024 End: 01-24-2024 Patient encounter procedure BLACK JIMENEZ Work Phone: [facility] [employer] Start: 01-23-2024 End: 01-23-2024 Historical Summary BLACK BARBARA Work Phone: [employer] Start: 01-23-2024 End: 01-23-2024 Office outpatient visit 15 minutes BLACK JIMENEZ Work Phone: [employer] Start: 08-01-2011 End: 08-01-2011 Historical Summary 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 Plan of Treatment Date Care Activity Detail Author Start: 11-12-2024 Patient encounter procedure Medical; BLOOD PRESSURE CHECK - [facility] [employer] [facility] Start: 12-Nov-2024 09:30-04:00 MD Jamil MCNEILL Appointment Request [facility] [employer] [facility] Start: 11-05-2024 Patient encounter procedure Medical; LAB ONLY - [facility] [employer] [facility] Start: 05-Nov-2024 08:30-04:00 MD Jamil MCNEILL Appointment Request [facility] [employer] [facility]. Start: 10-18-2024 Comprehensive metabolic panel CMP - COMPREHENSIVE METABOLIC PANEL (12025) Start: 18-Oct-2024 10:38-04:00 Request [employer]; [employer] [facility] Start: 07-23-2024 MCR/MCR Adv Estab problem management (G2211) MCR/MCR Adv Estab problem management (G2211) Start: 23-Jul-2024 Intent [facility] [employer]; [employer] [facility] [employer] [facility]. Start: 07-23-2024 FQHC visit, estab pt Medical; ESTABLISHED PATIENT ROUTINE VISIT - [facility] [employer] Start: 23-Jul-2024 10:00-04:00 MD Jamil MCNEILL Appointment Request [employer] [facility] [employer] Start: 02-12-2024 Immunoelectrophoresis serum SERUM PROTEIN ELECTROPHORESIS (12890) - SERUM Start: 12-Feb-2024 Request [employer]; [place] - [facility]. Start: 01-23-2024 Hemoglobin glycosylated a1c HEMOGLOBIN GLYCLATED (HGB A1C) (64863) Start: 23-Jan-2024 14:55-05:00 Request [employer] Start: 01-23-2024 Assay of prostate specific antigen total PSA (PROSTATE SPECIFIC ANTIGEN) (68794) Start: 23-Jan-2024 14:55-05:00 Request [employer] Start: 01-23-2024 Lipid panel LIPID PANEL (49301) Start: 23-Jan-2024 14:53-05:00 Request [employer] Start: 01-23-2024 Comprehensive metabolic panel CMP - COMPREHENSIVE METABOLIC PANEL (22801) Start: 23-Jan-2024 14:53-05:00 Request [employer] Start: 01-23-2024 Blood count complete auto&auto difrntl wbc CBC, PLATELETS & AUT DIFF (40771) Start: 23-Jan-2024 14:53-05:00 Request [employer] Start: 01-23-2024 Im adm prq id subq/im njxs ea vaccine IMMUNIZATION ADMIN EACH ADD (37943) Start: 23-Jan-2024 Intent [employer]; [employer] CTA Head vessels and Neck vessels W contrast IV [facility] Radionuclide imaging of perfusion of myocardium under exercise stress [facility] Td (7 years and up) Scheduled for Administration Intent [employer] Immunizations Immunization Date Immunization Notes Care Provider Fa cility 01-23-2024 Pneumococcal conjuga te, 20 valent (PCV20) BLACK JIMENEZ Work Phone: [employer]; [employer] Comment on above: Site: Left ArmVIS Gi telma: * Pneumococcal Conjugate Vaccine (07/29/22) 01-23-2024 pneumococcal Conjuga te, unspecified formulation BLACK JIMENEZ Work Phone: [employer]; [employer] 01-23-2024 *IMMUNIZATION ADMIN (66499) BLACK JIMENEZ Work Phone: [employer]; [employer] Payers Date Payer Category Payer Private Health Insurance [id number] 2024 Self-pay 1960 Unknown [id number] 2.16.8 [id number] 1960 Unknown [id number] 2.16.8 [id number] 1960 Unknown [id number] 2.16.8 [id number] 1960 Unknown [id number] 2.16.8 [id number] Unknown [id number] 2.16.8 [id number] Unknown [id number] 2.16.8 [id number] Unknown [id number] 2.16.8 [id number] Unknown [id number] 2.16.8 [id number] Unknown [id number] 2.16.8 [id number] Social History Date Type Detail Facility Start: 1960 Male [facility] Tobacco smoking consumption unknown [employer]; [employer] Work Phone: Alcohol Use: Alcohol Use: ; Y es for Alcohol Use. 1 to 7 drinks per week. 3 drinks per occasion. [employer]; [employer] Tobacco use: Tobacco use: ; F ormer smoker. [employer]; [employer] [facility], [employer]. Work Phone: Start: 09-12-2024 [facility] tobacco smoker [facility] NEGATED: Highlighted row No Social History Information Available No Social History Information Available [facility] [employer] [facility].; [facility]. Work Phone: Radiology Diagnostic study note 09-13-2024 Note Date & Type Note Facility 09-13-2024 Radiology Diagnostic study note [facility] Services [address], [place] [address] CTA Head AND Neck W/ Contrast MR#: [id number] Acct: [id number] Name: ROMA MUNGUIA Rep #: [id number] : 1960 M 63 From: Ze Castanon MD PCP: Dr. Smita Mcneill MD Status: REG C LI Study:CTA Head AND Neck W/ Contrast Date of E xam: 09/13/24 Exam# [id number] Ordering Dr: Mnih Hernandez PROCEDURE: CTA HEAD AND NECK W/ [...] RIGHT Vertebral: Unremarkable. LEFT Vertebral: Unremarkable. Anatomy: [place] anatomy is normal. Aneurysm or [...] the right internal carotid artery. Reading Location: [id number] CC: FRANKIE Mchugh; Dr. 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 Network Engineer: Signed [facility] Evaluation note 09-12-2024 Note Date & Type Note Facility 09-12-2024 Evaluation note Diagnosis Onset Date Resolution Amaurosis fugax of right eye acute September 12, 2024 8:09am Carotid stenosis, right acute September 12, 2024 8:09am [facility] Work Phone: Evaluation note Note Date & Type Note Facility Evaluation note No assessment information availa ble [facility] Work Phone: Evaluation note Note Date & Type Note Facility Evaluation note Diagnosis Onset Date Resolution Amaurosis fugax of right eye acute September 12, 2024 8:09am Carotid stenosis, right acute September 12, 2024 8:09am [facility] Work Phone: Reason for referral (narrative) Note Date & Type Note Facility Reason for referral (narrative) No reason for referral information available [facility] Work Phone: Chief Complaint and Reason [...] section and content) DATE CREATED AUTHOR 09/19/2024 [facility] DATE CREATED AUTHOR AUTHOR'S ORGANIZ ATION 09/26/2024 [facility] FOR RECORDS PERTAINING TO PATIENTS WHO ARE [...] BE BASED ON THE PRIMARY CLINICAL RECORDS. [employer] provides no warranty or guarantee of the accuracy or completeness of information in this document.
--- NOTE | 2024-09-26 08:36 | PCM.PN.SRG ---
Subjective Subjective I saw patient resting comfortably in bed this morning with his at bedside. He reports to some soreness at the neck incision site, mostly bothers him when he reaches his right arm across his body to grab something. He was able to urinate finally overnight. He has been tolerating a normal diet so far. He was up to ambulate to the bathroom and reports some mild dizziness with that. He denies any headache, vision changes, focal weakness/numbness/paresthesias, or other concerns. Objective Data Objective Data Vital Signs: Vital Signs Temp Pulse Resp BP Pulse Ox O2 Del Method O2 Flow Rate 97.6 F L 56 L 16 133/73 H 97 Room Air 2 09/26/24 05:00 09/26/24 06:00 09/26/24 06:00 09/26/24 06:00 09/26/24 06:00 09/26/24 06:00 09/25/24 11:09 Oxygen Flow Rate (L/min) 2 Oxygen Delivery Method Room Air Weight: 237 lb 10.533 oz Body Mass Index (BMI) 35.1 Intake & Output: Intake and Output for Last 24 Hours 09/24/24 09/25/24 09/26/24 23:59 23:59 23:59 Intake Total 2200 / 2200 Balance 2200 / 2200 Lab / Micro Data 09/26/24 03:30 09/25/24 06:00 Labs: Laboratory Results - last 24 hr 09/25/24 06:50: Activated Clotting Time 141 H 09/25/24 07:37: Activated Clotting Time 331 H 09/25/24 08:11: Activated Clotting Time 285 H 09/26/24 03:30: WBC 7.8, RBC 4.26 L, Hgb 13.3, Hct 37.7 L, MCV 88.5, MCH 31.2, MCHC 35.3, RDW Std Deviation 43.2, RDW Coeff of Alvina 13.2, Plt Count 141 L, MPV 9.5, Immature Gran % (Auto) 0.300, Neut % (Auto) 67.3, Lymph % (Auto) 24.0, Anderson % (Auto) 7.7, Eos % (Auto) 0.3, Baso % (Auto) 0.4, Absolute Neuts (auto) 5.2, Absolute Lymphs (auto) 1.86, Nucleated RBC % 0 Physical Exam Const alert, oriented x3 and no apparent distress General Appearance: cooperative and comfortable HEENT normocephalic, head/scalp atraumatic, hearing grossly normal bilaterally, external ears normal and external nose normal Eyes EOMs intact bilaterally General Eye: normal appearance of both eyes Neck Neck Narrative: R neck incision site with skin glue intact, no dehiscence. QUYEN drain intact with minimal output, mostly surgicel hemostatic agent in the drain. There is mild swelling, soft to palpation throughout. Resp normal respiratory effort, normal air movement, no retractions and no use of accessory muscles Effort and Inspection: able to speak in complete sentences and symmetric chest movement; Negative for labored, grunting or stridor Cardio regular rate and regular rhythm Extremity Extremity Narrative: R groin puncture site with pressure dressing C/D/I, no swelling/hematoma. Skin no rashes or lesions noted Trauma: no lacerations or abrasions Neuro oriented x3, CN's II-XII intact bilaterally, moves all extremities, no focal motor deficits and no sensory deficits noted Speech: speech normal Psych mental status grossly normal Appearance: grossly normal Attitude: calm and engaged Activity / Motor Behavior: appropriate eye contact Speech: normal speech Mood & Affect: euthymic mood Assessment & Plan Assessment/Plan (1) Carotid stenosis, right: PLAN: He is POD#1 s/p R TCAR. Incision site is satisfactory in appearance without hematoma. QUYEN drain removed without issue. He has been hemodynamically and neurologically stable. He was able to void. Will plan for him to ambulate with nursing or PT this morning. If he ambulates to baseline, then will plan for discharge home this morning. Charges/Coding Procedures Integumentary 111xxx-[id number]: 25001 Global Visit
--- NOTE | 2024-09-26 09:32 | DS.PCM_ITS ---
Providers Date of Admission: 09/25/24 Primary Care Physician: Dr. Smita Grimaldo MD Reason For Visit: Occlusion and stenosis of right carotid artery Diagnosis Discharge Diagnosis (1) Carotid stenosis, right: Status: Chronic Code(s): I65.21 - Occlusion and stenosis of right carotid artery Plan: He is POD#1 s/p R TCAR. Incision site is satisfactory in appearance without hematoma. QUYEN drain removed without issue. He has been hemodynamically and neurologically stable. He was able to void. Will plan for him to ambulate with nursing or PT this morning. If he ambulates to baseline, then will plan for discharge home this morning. Medications at Discharge Home Medications ascorbic acid (vitamin C) 500 mg capsule 1,000 mg PO .QD SUPPLEMENET 09/10/24 vitamins A,C,Q-dmjf-nspdgm 4,296 mcg-226 mg-90 mg capsule (PreserVision AREDS) 1 cap PO BID EYES 09/10/24 aspirin 81 mg tablet,delayed release (Adult Aspirin Regimen) 81 mg PO DAILY THINNER #360 tabs 09/12/24 rosuvastatin 40 mg tablet 40 mg PO QDAY CHOLESTEROL #30 tabs 09/12/24 acetaminophen 500 mg tablet 1,000 mg (2 x 500 mg) PO Q8 7 days #42 tabs 09/26/24 clopidogrel 75 mg tablet (Plavix) 75 mg PO DAILY BLOOD THINNER #30 tabs 09/26/24 oxycodone 5 mg tablet 5 mg PO Q8H PRN PRN Pain Score 4-10 3 days #9 tabs 09/26/24 tamsulosin 0.4 mg capsule 0.4 mg PO DAILY 14 days #14 caps 09/26/24 Hospital Course Summary of Care Provided Hospital Course: Mr. Evan Munguia is a 63 y/o male who underwent R TCAR on 09/25/24 after which he was routinely admitted to the ICU for ongoing hemodynamic and neurologic monitoring. His procedure was without complication. He has remained hemodynamically and neurologically stable throughout his admission. QUYEN drain was removed POD#1 without issue. On POD#1 he was voiding to baseline, tolerating a normal diet, surgical site pain well managed and minimal, and ambulating to baseline. He is discharged home in stable condition 09/26/24 with planned outpatient follow-up in the office 10/09/24. Physical Exam Const alert, oriented x3 and no apparent distress General Appearance: cooperative and comfortable HEENT normocephalic, head/scalp atraumatic, hearing grossly normal bilaterally, external ears normal and external nose normal Eyes EOMs intact bilaterally General Eye: normal appearance of both eyes Neck Neck Narrative: R neck incision site with skin glue intact, no dehiscence. There is mild swelling, soft to palpation throughout. Resp normal respiratory effort, normal air movement, no retractions and no use of accessory muscles Effort and Inspection: able to speak in complete sentences and symmetric chest movement; Negative for labored, grunting or stridor Cardio regular rate and regular rhythm Extremity Extremity Narrative: R groin puncture site with pressure dressing C/D/I, no swelling/hematoma. Skin no rashes or lesions noted Trauma: no lacerations or abrasions Neuro oriented x3, CN's II-XII intact bilaterally, moves all extremities, no focal motor deficits and no sensory deficits noted Speech: speech normal Psych mental status grossly normal Appearance: grossly normal Attitude: calm and engaged Activity / Motor Behavior: appropriate eye contact Speech: normal speech Mood & Affect: euthymic mood Weight / BMI Weight Weight: 237 lb 10.533 oz Body Mass Index (BMI) 35.1 ABG / Lab / Microbiology Data 09/26/24 03:30 09/25/24 06:00 Laboratory: Laboratory Results - last 24 hr 09/25/24 06:50: Activated Clotting Time 141 H 09/25/24 07:37: Activated Clotting Time 331 H 09/25/24 08:11: Activated Clotting Time 285 H 09/26/24 03:30: WBC 7.8, RBC 4.26 L, Hgb 13.3, Hct 37.7 L, MCV 88.5, MCH 31.2, MCHC 35.3, RDW Std Deviation 43.2, RDW Coeff of Alvina 13.2, Plt Count 141 L, MPV 9.5, Immature Gran % (Auto) 0.300, Neut % (Auto) 67.3, Lymph % (Auto) 24.0, [place] % (Auto) 7.7, Eos % (Auto) 0.3, Baso % (Auto) 0.4, Absolute Neuts (auto) 5.2, Absolute Lymphs (auto) 1.86, Nucleated RBC % 0 D/C Instructions Discharge Diet: No restrictions May shower in (days): 1 Weight Bearing Status: Weight bearing as tolerated Lifting Restricted to (Lbs): 20 Lifting Restrictions: Do not lift greater than 20 pounds for 3 weeks Call your doctor if your incision/area has: Sudden Increased Bleeding, Increased Pain/ Swelling and Foul Smelling Discharge Call your doctor if you observe: Fever of 101 or Higher and Uncontrolled pain Remove Dressing in: 1 day (neck and R groin) DC O2, CPAP, BIPAP Needs Home O2 Discharge instructions: No Additional Instructions: INCISION CARE: You have a small bandage on your neck over the site from which the surgical drain was removed and over the R groin puncture site. You may remove both bandages tomorrow. As long as there is no residual drainage, you may leave these sites open to air. If you do notice some continued drainage, you may re- cover with a Band-Aid. Your neck incision site is covered with skin glue which will continue to protect it. The skin glue will peel/flake off on its own over the next few weeks. Please do not pick at it. You may shower tomorrow. It is okay for soap and water to rinse over the incision site, pat to dry. Do not submerge the incision site in water such as to take a bath or go swimming etc. for 3 weeks. MEDICATION INSTRUCTIONS Continue to take Aspirin 81mg daily indefinitely. Continue to take Plavix 75mg daily for at least 30 days postoperatively. You have been prescribed oxycodone 5mg tablet to be taken by mouth every 8 hours as needed for pain. You may take this in addition to Tylenol as needed. You should not drive or operate machinery while taking this medication. Do not take this medication in combination with any other prescription pain medications. You had some difficulty urinating after surgery. Due to this, you were started on a medication called Flomax or Tamsulosin which can help with this. Please continue to take this medication for an additional 2 weeks, after that you may discontinue. If you continue to have difficulty urinating after that time then please discuss this further with your primary care provider. Call the office at [phone] with any questions about your medications ACTIVITY INSTRUCTIONS Do not lift greater than 20 pounds for 3 weeks. Otherwise, please continue with activity as tolerated. FOLLOW-UP INSTRUCTIONS You are scheduled for follow-up in the office on 10/09/2024. If you need to change this appointment or have any other questions/concerns, please call the office at [phone]. Please Follow Up With: Matilde Dinh PA When: 10/09/2024 Meaningful Use Info Meaningful Use Meaningful Use Diagnoses (Choose all that apply): None applicable Ischemic Stroke Statin Dosing Therapy Reference: STATIN DOSE THERAPY REFERENCE: * Patients > 75 years receive moderate or high dose statin therapy. * Patients 75 years or YOUNGER should receive HIGH intensity statin dose unless contraindicated. You will be required to document reason for non-treatment if statin daily dose does not meet guidelines. HIGH DOSE STATIN THERAPY DAILY Atorvastatin > than or = to 40 mg Rosuvastatin > than or = to 20 mg Amlodipine + Atorvastatin > than or = to 2.5/40 mg Ezetimibe + Simvastatin 10/80 mg Simvastatin 80mg Discharge Plan Admission Admit Date/Time: 09/25/24 09:35 Attending Provider: Marcial Srinivasan Primary Care Provider: Smita Grimaldo Instructions Additional Instructions / Restrictions: INCISION CARE: You have a small bandage on your neck over the site from which the surgical drain was removed and over the R groin puncture site. You may remove both bandages tomorrow. As long as there is no residual drainage, you may leave these sites open to air. If you do notice some continued drainage, you may re- cover with a Band-Aid. Your neck incision site is covered with skin glue which will continue to protect it. The skin glue will peel/flake off on its own over the next few weeks. Please do not pick at it. You may shower tomorrow. It is okay for soap and water to rinse over the incision site, pat to dry. Do not submerge the incision site in water such as to take a bath or go swimming etc. for 3 weeks. MEDICATION INSTRUCTIONS Continue to take Aspirin 81mg daily indefinitely. Continue to take Plavix 75mg daily for at least 30 days postoperatively. You have been prescribed oxycodone 5mg tablet to be taken by mouth every 8 hours as needed for pain. You may take this in addition to Tylenol as needed. You should not drive or operate machinery while taking this medication. Do not take this medication in combination with any other prescription pain medications. You had some difficulty urinating after surgery. Due to this, you were started on a medication called Flomax or Tamsulosin which can help with this. Please continue to take this medication for an additional 2 weeks, after that you may discontinue. If you continue to have difficulty urinating after that time then please discuss this further with your primary care provider. Call the office at [phone] with any questions about your medications ACTIVITY INSTRUCTIONS Do not lift greater than 20 pounds for 3 weeks. Otherwise, please continue with activity as tolerated. FOLLOW-UP INSTRUCTIONS You are scheduled for follow-up in the office on 10/09/2024. If you need to change this appointment or have any other questions/concerns, please call the office at [phone]. Discharge Orders/Prescriptions Prescriptions: New acetaminophen 500 mg Tablet 1,000 mg PO Q8 7 Days Qty: 42 0RF tamsulosin 0.4 mg Capsule 0.4 mg PO DAILY 14 Days Qty: 14 0RF oxycodone 5 mg Tablet 5 mg PO Q8H PRN PRN (Reason: Pain Score 4-10) 3 Days Qty: 9 0RF Continued ascorbic acid (vitamin C) 500 mg capsule 1,000 mg PO .QD PreserVision AREDS 4,296 mcg-226 mg-90 mg capsule 1 cap PO BID aspirin [Adult Aspirin Regimen] 81 mg tablet,delayed release (DR/EC) 81 mg PO DAILY Qty: 360 0RF rosuvastatin 40 mg tablet 40 mg PO QDAY Qty: 30 2RF clopidogrel [Plavix] 75 mg tablet 75 mg PO DAILY Qty: 30 2RF Referrals / Follow Up: Smita Grimaldo MD [Primary Care Provider] - Disposition Disposition (needs filled in before D/C Order can be placed): Home, Self Care
[2024-09-26] MEDS: Multivitamin (Healthy Eyes) Capsule 1 CAP PO (10:02)
[2024-09-26] MEDS: Aspirin E.C. 81 MG Tablet PO (10:03)
--- NOTE | 2024-09-26 10:07 | CASEMGMT ---
LETTY HOOPER Assessment Face to Face with patient for initial transition planning/care coordination assessment. LETTY HOOPER introduced self and role at [facility], pt voices understanding. Pt is A&Ox4 and is resting comfortably in bed and is calm. Pt's at bedside. Care providers, pharmacy, and demographics verified. Admitting dx: Right Carotid Artery occlusion and stenosis LACE Strata: 1 PCP: Smita Grimaldo Specialists: Zarina (Vascular) Preferred [facility]acy[facility] Insurance: [employer] [facility] Prescription Benefit: Yes LNOK: Helen (W) Living Arrangements: Pt lives with his in a 2 story home with a flat entrance. Reports that family lives close by as well ADLs/IADLs: Indep . 6-Click score is 24. Transportation: Hires drivers. Denies concerns DME: Access to a FWW, Cane, and BP Machine. HHC/SNF: Denies hx of. Pt states that he gets a yearly check up visit through his insurance, however. Pt?s goal: Home Plan: Home, no additional needs identified. Pt states that he feels safe returning home with his today and denies the need for further therapy or resources. Pt denies further questions or concerns at this time. Karin Akers RN, CM
--- NOTE | 2024-09-26 11:40 | CASEMGMT ---
Social Work - advance directives SW met with pt to discuss advance directives. Pt wishes to complete documents at this time. SW assisted pt in completing a living will and health care POA naming his Helen as decision maker. Copy placed on pt chart and original given to pt. TEENA Vela
== END 2024-09-26 12:59 | disposition home or self-care (01) | DRG 35 ==
LOC: ICU 10:47
PROVIDERS: Anesthesiology; Admitting Provider Surgery Trauma Surgery; PCP Family Medicine; Referring Provider Surgery Trauma Surgery; Visit Provider Surgery Trauma Surgery
PROC: 037H3DZ Dilation of Right Common Carotid Artery with Intraluminal Device, Percutaneous Approach (ICD-10-PCS; CPT 37236; principal; 2024-09-25 06:45)
DX: I65.21 Occlusion and stenosis of right carotid artery (principal); G45.3 Amaurosis fugax; F17.200 Nicotine dependence, unspecified, uncomplicated; Z79.02 Long term (current) use of antithrombotics/antiplatelets; Z79.82 Long term (current) use of aspirin; Z79.899 Other long term (current) drug therapy
CPT/HCPCS: 37215; 76937; 80048; 85025; 85347; 93005; 94640; 94668; 97802; 99252; A4648; C1725; C1769; C1876; C1884; C1894; Q9967; G0463; J2405

== ENCOUNTER → 2024-11-25 | Outpatient (CLI) | payer MEDICARE, SELFPAY ==
--- NOTE | 2024-11-25 12:24 | CDU_ITS ---
Reason For Study Reason For Study: S/P Rt TCAR Rt. Velocities/BP Lt. Velocities/BP Subclavian artery 97.8/16.7 cm/sec. Prox CCA 108.9/28.5 cm/sec. Prox CCA 103.4/21.2 cm/sec. Mid CCA 65.5/18.2 cm/sec. Mid CCA 72.7/16.6 cm/sec. Dist CCA 73.2/20.4 cm/sec. Dist CCA 52.2/19.3 cm/sec. Prox ICA 63.3/16.0 cm/sec. Stent Noted at prox ICA Mid ICA 43.4/18.6 cm/sec. Prox Stent - 68.0/18.03 cm/s Dist ICA 49.3/20.1 cm/sec. Mid Stent - 61.8/23.4 cm/s Lt. ICA/CCA = 1.0. Dist Stent - 61.8/23.4 cm/s. Prox ECA 63.2/9.7 cm/sec. Mid ICA 73.2/29.2 cm/sec. Lt. Vert. 32.5/11.1 cm/sec. Dist ICA 67.7/23.7 cm/sec. Rt. ICA/CCA = 1.0. Prox ECA 203.6/19.6 cm/sec. Rt. Vert. 36.0/7.5 cm/sec. Right Extracranial There is homogeneous, smooth atherosclerotic plaque noted in the right common carotid artery. Stent Noted. There is intimal thickening but no significant atherosclerotic plaque noted in the right external carotid artery. Antegrade flow is noted in the right vertebral artery. Left Extracranial There is homogeneous, smooth atherosclerotic plaque noted in the left common carotid artery. There is intimal thickening but no significant atherosclerotic plaque noted in the left internal carotid artery. There is intimal thickening but no significant atherosclerotic plaque noted in the left external carotid artery. Antegrade flow is noted in the left vertebral artery. Procedure Carotid Duplex 01000. This is a Carotid Duplex examination using B-mode, color flow and specral Doppler. The exam was diagnostic. Exam performed in department. VL/Carotid Duplex Ultrasound Interpretation Summary Mild (<50%) stenosis right extracranial internal carotid. Normal left extracranial internal carotid. Patent and antegrade vertebrals bilaterally. Ordering Physician: Matilde Dinh Referring Physician: Smita Grimaldo Performed By: Michel Harper RVT and Student
== END | disposition home or self-care (01) ==
PROVIDERS: PCP Family Medicine; Referring Provider Physician Assistant; Visit Provider Physician Assistant
DX: I65.21 Occlusion and stenosis of right carotid artery (principal)
CPT/HCPCS: 93880